=== PATIENT | female | born 1935 | race Caucasian/White ===

== ENCOUNTER 2017-07-29 08:25 | Inpatient (IN) ==
[2017-07-29] MEDS ORDERED: PROMETHAZINE 25 MG/1 ML VIAL IM PRN (08:39)
[2017-07-29] MEDS ORDERED: ASPIRIN 325 MG TABLET PO STA (08:39)
[2017-07-29] MEDS ORDERED: ONDANSETRON 4 MG/2 ML VIAL IV PRN (08:39)
[2017-07-29] MEDS ORDERED: ENOXAPARIN 100 MG/ML SYRINGE SUBCUT STA (08:39)
[2017-07-29] MEDS ORDERED: SODIUM CHLORIDE 0.9% 1,000 ML IV STA ×2 (08:40→10:44)
[2017-07-29 08:51] LABS: Basophils % 0.3 % (0.0-0.8); Eosinophils % 0.1 % (0.00-10.9); Hematocrit 37.5 VOL% (35.7-47.0); Hemoglobin 11.1 GM/DL (12.0-16.0); Immature Granulocytes % 1.1 %; Immature Granulocytes Absolute 0.13 #; Lymphocytes # 1.1 10*3/uL (1.4-4.0); Lymphocytes % 9.1 % (21.3-54.2); Mean Corpuscular HGB Conc 29.6 GM/DL (32-36); Mean Corpuscular Hemoglobin 31 PG (27-34); Mean Platelet Volume 11.1 FL (9.6-12.0); Monocytes # 0.7 10*3/uL (0.11-0.8); Monocytes % 5.6 % (1.7-12.7); Neutrophils # 10.2 10*3/uL (1.4-7.4); Neutrophils % 83.8 % (38.7-73.9); Platelet Count 226 T/CUMM (130-400); Red Blood Count 3.64 MC/CUMM (3.8-5.5); White Blood Count 12.2 T/CUMM (4-12)
[2017-07-29 08:59] LABS: PT Patient Result 10.8 SECS; Partial Thromboplastin Time 33.8 SECS (0-40)
[2017-07-29] MEDS ORDERED: ENOXAPARIN 80 MG/0.8 ML SYRINGE SUBCUT ONE (09:04)
[2017-07-29 09:21] LABS: Bilirubin,Total 0.5 MG/DL (0.2-1.0); Calcium 7.7 MG/DL (8.5-10.1); Osmolality,Calculated 294.2 MOS/KG (273-304)
[2017-07-29] MEDS ORDERED: MORPHINE 2 MG/1 ML SYRINGE IV STA (09:34)
[2017-07-29] MEDS ORDERED: MORPHINE 2 MG/1 ML SYRINGE ONE ×2 (09:38)
[2017-07-29] MEDS ORDERED: ONDANSETRON 4 MG/2 ML VIAL ONE (09:38)
[2017-07-29 09:44] LABS: Apearance,Urine Slightly Hazy (Clear); Bilirubin,Urine Negative (Negative); Blood, Urine Moderate mg/dL (Negative); Glucose,Urine (UA) >=500 mg/dL (Negative); Hyaline Casts,Urine 1 /LPF (0-3); Ketones,Urine 80 mg/dL (Negative); Mucus,Urine Occasional /LPF (Occasional); Nitrite,Urine Negative (Negative); Protein,Urine Negative; RBC,Urine 16 /HPF (0-4); Squamous Epithelial Cell,Urine Occasional /HPF (0-10); Urine Color Yellow (Yellow); Urine Specific Gravity 1.016 (1.001-1.035); Urine Urobilinogen < 2.0 EU/DL (0.2-1.0); WBC,Urine 2 /HPF (0-6)
[2017-07-29] MEDS ORDERED: NITROGLYCERIN 2% OINT 1 INCH/GM PACK TOP ONE (10:58)
[2017-07-29] MEDS: NITROGLYCERIN 2% OINT 1 INCH/GM PACK TOP SCH ×2 (12:00→17:17)
[2017-07-29] MEDS ORDERED: INSULIN LISPRO 100 UNIT/ML SUBCUT ONE (13:35)
[2017-07-29] MEDS ORDERED: INSULIN LISPRO 100 UNIT/ML SUBCUT STA (13:38)
[2017-07-29] MEDS ORDERED: GLUCAGON 1 MG VIAL IM PRN (14:08)
[2017-07-29] MEDS ORDERED: DOCUSATE SODIUM 100 MG CAPSULE PO PRN (14:08)
[2017-07-29] MEDS: INSULIN REGULAR 100 UNIT/ML SUBCUT SCH ×2 (15:50→17:06)
[2017-07-29] MEDS: SODIUM CHLORIDE 0.9% 1,000 ML IV SCH ×2 (17:05)
[2017-07-29] MEDS: AZTREONAM 500 MG in SYRINGE 1 EACH IV SCH (17:06)
[2017-07-29] MEDS: INSULIN NPH/REGULAR 70/30 100 UNIT/ML SUBCUT SCH (17:06)
[2017-07-29 17:31] LABS: CKMB % 8.7 %
[2017-07-29 17:32] LABS: Troponin I Only 0.734 NG/ML (0.00-0.045)
[2017-07-29 17:53] LABS: CKMB % 10.9 %
[2017-07-29 17:57] LABS: Troponin I Only 0.843 NG/ML (0.00-0.045)
[2017-07-29] MEDS ORDERED: VANCOMYCIN INJ 1,000 MG in SODIUM CHLORIDE 0.9% 250 ML IV SCH (18:00)
[2017-07-29] MEDS ORDERED: INSULIN REGULAR 100 UNIT/ML SUBCUT ONE (18:58)
[2017-07-29] MEDS: metroNIDAZOLE INJ 500 MG in PREMIX 1 EACH IV SCH (20:00)
[2017-07-29] MEDS ORDERED: METOPROLOL TARTRATE 50 MG TABLET PO SCH (21:00)
[2017-07-29] MEDS: ONDANSETRON 4 MG/2 ML VIAL IV PRN (21:50)
[2017-07-29] MEDS: INSULIN GLARGINE 100 UNIT/ML SUBCUT SCH (21:50)
[2017-07-29] MEDS: METOPROLOL TARTRATE 100 MG TABLET PO SCH (22:55)
[2017-07-30] MEDS: INSULIN REGULAR 100 UNIT/ML SUBCUT SCH ×5 (00:07→23:57)
[2017-07-30] MEDS: NITROGLYCERIN 2% OINT 1 INCH/GM PACK TOP SCH ×4 (03:30→18:14)
[2017-07-30] MEDS: metroNIDAZOLE INJ 500 MG in PREMIX 1 EACH IV SCH ×3 (03:56→21:01)
[2017-07-30] MEDS: METOPROLOL TARTRATE 100 MG TABLET PO SCH (03:56)
[2017-07-30 04:43] LABS: Basophils % 0.2 % (0.0-0.8); Hematocrit 31.8 VOL% (35.7-47.0); Hemoglobin 10.2 GM/DL (12.0-16.0); Immature Granulocytes % 0.6 %; Immature Granulocytes Absolute 0.07 #; Lymphocytes # 0.7 10*3/uL (1.4-4.0); Lymphocytes % 6.4 % (21.3-54.2); Mean Corpuscular HGB Conc 32.1 GM/DL (32-36); Mean Corpuscular Hemoglobin 31 PG (27-34); Mean Corpuscular Volume 97.8 FL (87-102); Mean Platelet Volume 11.7 FL (9.6-12.0); Monocytes # 0.7 10*3/uL (0.11-0.8); Monocytes % 6.7 % (1.7-12.7); Neutrophils # 9.4 10*3/uL (1.4-7.4); Neutrophils % 86.1 % (38.7-73.9); Platelet Count 201 T/CUMM (130-400); Red Blood Count 3.25 MC/CUMM (3.8-5.5); Red Cell Distribution Width 13.7 % (9.3-17.3); White Blood Count 10.9 T/CUMM (4-12)
[2017-07-30] MEDS ORDERED: AZTREONAM 500 MG in SYRINGE 1 EACH IV SCH (05:30)
[2017-07-30 05:43] LABS: Calcium 6.8 MG/DL (8.5-10.1); Osmolality,Calculated 285.7 MOS/KG (273-304); Potassium 4.9 MMOL/L (3.5-5.1)
[2017-07-30] MEDS: AZTREONAM 500 MG in SYRINGE 1 EACH IV SCH ×2 (05:53→17:20)
[2017-07-30] MEDS: MORPHINE 2 MG/1 ML SYRINGE IV PRN ×3 (06:38→21:10)
[2017-07-30] MEDS ORDERED: NITROGLYCERIN DRIP 50 MG/250 ML BOTTLE IV SCH (07:00)
[2017-07-30] MEDS ORDERED: PHENYLEPHRINE DRIP 40 MG/250 ML PREMIX IV ONE (07:01)
[2017-07-30] MEDS: PHENYLEPHRINE DRIP 40 MG/250 ML PREMIX IV SCH (07:39)
[2017-07-30] MEDS: SODIUM CHLORIDE 0.9% 1,000 ML IV SCH ×2 (07:44→16:14)
[2017-07-30] MEDS ORDERED: VANCOMYCIN INJ 1,000 MG in SODIUM CHLORIDE 0.9% 250 ML IV PRN (08:36)
[2017-07-30] MEDS ORDERED: ENOXAPARIN 80 MG/0.8 ML SYRINGE SUBCUT SCH (09:00)
[2017-07-30] MEDS: ONDANSETRON 4 MG/2 ML VIAL IV PRN (09:30)
[2017-07-30] MEDS ORDERED: LIDOCAINE 1% 20 ML VIAL ONE (09:37)
[2017-07-30] MEDS: INSULIN NPH/REGULAR 70/30 100 UNIT/ML SUBCUT SCH ×2 (09:50→17:06)
[2017-07-30] MEDS: ASPIRIN EC 325 MG TABLET PO SCH (09:51)
[2017-07-30] MEDS: PANTOPRAZOLE 40 MG TABLET PO SCH (09:52)
[2017-07-30] MEDS: FENOFIBRATE 145 MG TABLET PO SCH (09:52)
[2017-07-30] MEDS ORDERED: MEPERIDINE 25 MG/1 ML VIAL ONE (09:58)
[2017-07-30] MEDS ORDERED: HEPARIN/NACL 0.9% 2 UNITS/ML 0 ML IV ONE (09:58)
[2017-07-30] MEDS ORDERED: MIDAZOLAM 2 MG/2 ML VIAL ONE (09:59)
[2017-07-30] MEDS ORDERED: PHENYLEPHRINE 50 MG/5 ML VIAL ONE (09:59)
[2017-07-30] MEDS ORDERED: ENOXAPARIN 60 MG/0.6 ML SYRINGE ONE (10:42)
[2017-07-30] MEDS ORDERED: ENOXAPARIN 30 MG/0.3 ML SYRINGE ONE (10:48)
[2017-07-30 11:51] LABS: Amorphous Crystals,Urine Occasional /HPF (Few); Apearance,Urine CLOUDY (Clear); Bacteria,Urine Occasional /HPF (Few); Bilirubin,Urine Negative (Negative); Blood, Urine Moderate mg/dL (Negative); Glucose,Urine (UA) >=500 mg/dL (Negative); Hyaline Casts,Urine 3 /LPF (0-3); Ketones,Urine 20 mg/dL (Negative); Mucus,Urine Occasional /LPF (Occasional); Nitrite,Urine Negative (Negative); Protein,Urine 30 MG/DL; RBC,Urine 9 /HPF (0-4); Squamous Epithelial Cell,Urine Occasional /HPF (0-10); Urine Color Yellow (Yellow); Urine Specific Gravity 1.014 (1.001-1.035); WBC,Urine 3 /HPF (0-6)
[2017-07-30 17:30] LABS: Calcium 6.7 MG/DL (8.5-10.1); Osmolality,Calculated 283.4 MOS/KG (273-304); Potassium 5.3 MMOL/L (3.5-5.1)
[2017-07-30] MEDS ORDERED: FUROSEMIDE 40 MG/4 ML VIAL ONE (20:48)
[2017-07-30] MEDS: FUROSEMIDE 40 MG/4 ML VIAL IV SCH (21:00)
[2017-07-30] MEDS: ENOXAPARIN 40 MG/0.4 ML SYRINGE SUBCUT SCH (21:11)
[2017-07-30] MEDS: INSULIN GLARGINE 100 UNIT/ML SUBCUT SCH (21:11)
[2017-07-30 22:11] LABS: Allen Test Positive; Pt O2 Delivery Device BIPAP
[2017-07-30 22:12] LABS: ABG Base Excess -9.4 MMOL/L (-2.5-2.5); ABG HCO3 15.9 MMOL/L (20-26); ABG Oxygen Saturation 93.2 % (95-100); ABG PCO2 32.6 MM HG (35-48); ABG PH 7.306 (7.35-7.45); ABG PO2 68.8 MM HG (80-95); ABG TCO2 16.9 MMOL/L (23-27)
[2017-07-30] MEDS: MIDAZOLAM 2 MG/2 ML VIAL IV PRN (23:05)
[2017-07-30] MEDS: DEXTROSE 50% 25 GM/50 ML VIAL IV PRN (23:54)
[2017-07-31] MEDS: NITROGLYCERIN 2% OINT 1 INCH/GM PACK TOP SCH ×4 (01:32→18:18)
[2017-07-31] MEDS: MORPHINE 2 MG/1 ML SYRINGE IV PRN ×3 (02:19→20:08)
[2017-07-31] MEDS: MIDAZOLAM 2 MG/2 ML VIAL IV PRN (04:20)
[2017-07-31] MEDS: metroNIDAZOLE INJ 500 MG in PREMIX 1 EACH IV SCH ×3 (04:23→20:12)
[2017-07-31 04:36] LABS: Basophils % 0.1 % (0.0-0.8); Hematocrit 29.6 VOL% (35.7-47.0); Hemoglobin 9.6 GM/DL (12.0-16.0); Immature Granulocytes % 0.6 %; Immature Granulocytes Absolute 0.05 #; Lymphocytes # 0.9 10*3/uL (1.4-4.0); Lymphocytes % 10.4 % (21.3-54.2); Mean Corpuscular HGB Conc 32.4 GM/DL (32-36); Mean Corpuscular Hemoglobin 30 PG (27-34); Mean Corpuscular Volume 92.5 FL (87-102); Mean Platelet Volume 11.1 FL (9.6-12.0); Monocytes # 0.7 10*3/uL (0.11-0.8); Monocytes % 7.8 % (1.7-12.7); Neutrophils # 7.3 10*3/uL (1.4-7.4); Neutrophils % 81.1 % (38.7-73.9); Platelet Count 103 T/CUMM (130-400); Red Cell Distribution Width 14.4 % (9.3-17.3)
[2017-07-31 05:17] LABS: Calcium 6.6 MG/DL (8.5-10.1); Osmolality,Calculated 285.8 MOS/KG (273-304); Potassium 4.4 MMOL/L (3.5-5.1)
[2017-07-31] MEDS: DEXTROSE 50% 25 GM/50 ML VIAL IV PRN (05:32)
[2017-07-31] MEDS: AZTREONAM 500 MG in SYRINGE 1 EACH IV SCH ×2 (05:35→18:18)
[2017-07-31] MEDS: INSULIN REGULAR 100 UNIT/ML SUBCUT SCH ×3 (05:53→18:17)
[2017-07-31] MEDS: PHENYLEPHRINE DRIP 40 MG/250 ML PREMIX IV SCH (07:54)
[2017-07-31] MEDS ORDERED: VANCOMYCIN INJ 1,250 MG in SODIUM CHLORIDE 0.45% 250 ML IV PRN (08:00)
[2017-07-31] MEDS: INSULIN NPH/REGULAR 70/30 100 UNIT/ML SUBCUT SCH ×2 (08:05→16:47)
[2017-07-31] MEDS: FUROSEMIDE 40 MG/4 ML VIAL IV SCH ×2 (08:13→16:47)
[2017-07-31] MEDS ORDERED: VANCOMYCIN INJ 1,250 MG in SODIUM CHLORIDE 0.45% 250 ML IV ONE (09:00)
[2017-07-31] MEDS: ENOXAPARIN 40 MG/0.4 ML SYRINGE SUBCUT SCH ×2 (09:47→20:01)
[2017-07-31] MEDS: ASPIRIN EC 325 MG TABLET PO SCH (09:47)
[2017-07-31] MEDS: PANTOPRAZOLE 40 MG TABLET PO SCH (09:47)
[2017-07-31] MEDS: FENOFIBRATE 145 MG TABLET PO SCH (09:47)
[2017-07-31] MEDS: METOPROLOL TARTRATE 25 MG TABLET PO SCH ×2 (12:00→20:00)
[2017-07-31] MEDS: INSULIN GLARGINE 100 UNIT/ML SUBCUT SCH (20:01)
[2017-08-01] MEDS: INSULIN REGULAR 100 UNIT/ML SUBCUT SCH ×5 (00:37→23:49)
[2017-08-01] MEDS: NITROGLYCERIN 2% OINT 1 INCH/GM PACK TOP SCH ×4 (00:51→18:07)
[2017-08-01] MEDS: MORPHINE 2 MG/1 ML SYRINGE IV PRN ×4 (01:01→17:15)
[2017-08-01] MEDS: ONDANSETRON 4 MG/2 ML VIAL IV PRN ×3 (04:13→11:05)
[2017-08-01] MEDS: MIDAZOLAM 2 MG/2 ML VIAL IV PRN (05:03)
[2017-08-01] MEDS: AZTREONAM 500 MG in SYRINGE 1 EACH IV SCH ×2 (05:10→06:49)
[2017-08-01] MEDS: metroNIDAZOLE INJ 500 MG in PREMIX 1 EACH IV SCH (05:10)
[2017-08-01 06:43] LABS: Basophils % 0.1 % (0.0-0.8); Eosinophils % 0.1 % (0.00-10.9); Hematocrit 30.5 VOL% (35.7-47.0); Immature Granulocytes % 0.9 %; Immature Granulocytes Absolute 0.09 #; Lymphocytes # 0.7 10*3/uL (1.4-4.0); Lymphocytes % 7.5 % (21.3-54.2); Mean Corpuscular HGB Conc 32.8 GM/DL (32-36); Mean Corpuscular Hemoglobin 30 PG (27-34); Mean Corpuscular Volume 91.9 FL (87-102); Mean Platelet Volume 11.7 FL (9.6-12.0); Monocytes # 0.5 10*3/uL (0.11-0.8); Monocytes % 5.1 % (1.7-12.7); Neutrophils # 8.2 10*3/uL (1.4-7.4); Neutrophils % 86.3 % (38.7-73.9); Red Blood Count 3.32 MC/CUMM (3.8-5.5); Red Cell Distribution Width 14.6 % (9.3-17.3); White Blood Count 9.5 T/CUMM (4-12)
[2017-08-01 06:46] LABS: Platelet Count 69 T/CUMM (130-400)
[2017-08-01] MEDS: INSULIN NPH/REGULAR 70/30 100 UNIT/ML SUBCUT SCH (06:53)
[2017-08-01 07:07] LABS: Osmolality,Calculated 285.5 MOS/KG (273-304); Potassium 3.5 MMOL/L (3.5-5.1)
[2017-08-01 07:12] LABS: Microcytosis 1+; Platelet Estimate Decreased
[2017-08-01] MEDS: ACETAMINOPHEN 325 MG TABLET PO PRN (08:30)
[2017-08-01] MEDS: ASPIRIN EC 325 MG TABLET PO SCH (09:09)
[2017-08-01] MEDS: ENOXAPARIN 40 MG/0.4 ML SYRINGE SUBCUT SCH (09:09)
[2017-08-01] MEDS: FUROSEMIDE 40 MG/4 ML VIAL IV SCH ×2 (09:09→18:07)
[2017-08-01] MEDS: PANTOPRAZOLE 40 MG TABLET PO SCH ×2 (09:09→18:07)
[2017-08-01] MEDS: FENOFIBRATE 145 MG TABLET PO SCH (09:09)
[2017-08-01] MEDS: METOPROLOL TARTRATE 25 MG TABLET PO SCH ×2 (09:09→21:30)
[2017-08-01] MEDS: PROMETHAZINE 25 MG/1 ML VIAL IM PRN ×2 (11:30→17:15)
[2017-08-01 11:45] LABS: ABG Base Excess -0.6 MMOL/L (-2.5-2.5); ABG HCO3 23.9 MMOL/L (20-26); ABG PCO2 44.1 MM HG (35-48); ABG PH 7.361 (7.35-7.45); ABG PO2 85.2 MM HG (80-95); ABG TCO2 22.7 MMOL/L (23-27); Allen Test Positive
[2017-08-01] MEDS ORDERED: LIDOCAINE 1% 20 ML VIAL MISC INJ ONE (11:45)
[2017-08-01] MEDS: FAMOTIDINE 20 MG TABLET PO SCH ×2 (12:37→21:30)
[2017-08-01] MEDS: LEVOTHYROXINE 100 MCG TABLET PO SCH (12:37)
[2017-08-01 13:07] LABS: Lactic Acid 0.9 MMOL/L (0.4-2.0)
[2017-08-01 13:32] LABS: Albumin 2.3 G/DL (3.4-5.0); Bilirubin,Direct 0.35 MG/DL (0.0-0.20); Bilirubin,Indirect 0.4 MG/DL (0.0-1.0); Bilirubin,Total 0.7 MG/DL (0.2-1.0); Total Protein 5.5 G/DL (6.4-8.3)
[2017-08-02] MEDS: NITROGLYCERIN 2% OINT 1 INCH/GM PACK TOP SCH ×4 (00:01→18:40)
[2017-08-02] MEDS: MORPHINE 2 MG/1 ML SYRINGE IV PRN ×4 (00:38→22:50)
[2017-08-02 04:54] LABS: Basophils % 0.2 % (0.0-0.8); Eosinophils # 0.1 10*3/uL (0.0-0.87); Eosinophils % 0.6 % (0.00-10.9); Hematocrit 29.2 VOL% (35.7-47.0); Hemoglobin 9.7 GM/DL (12.0-16.0); Immature Granulocytes % 1.1 %; Lymphocytes # 0.9 10*3/uL (1.4-4.0); Mean Corpuscular HGB Conc 33.2 GM/DL (32-36); Mean Corpuscular Hemoglobin 30 PG (27-34); Mean Corpuscular Volume 91.3 FL (87-102); Mean Platelet Volume 11.9 FL (9.6-12.0); Monocytes # 0.7 10*3/uL (0.11-0.8); Monocytes % 7.1 % (1.7-12.7); Neutrophils # 7.7 10*3/uL (1.4-7.4); Platelet Count 107 T/CUMM (130-400); Red Cell Distribution Width 14.6 % (9.3-17.3); White Blood Count 9.4 T/CUMM (4-12)
[2017-08-02 05:28] LABS: Calcium 7.6 MG/DL (8.5-10.1); Osmolality,Calculated 294.4 MOS/KG (273-304); Potassium 3.4 MMOL/L (3.5-5.1)
[2017-08-02] MEDS: INSULIN REGULAR 100 UNIT/ML SUBCUT SCH ×3 (05:31→18:39)
[2017-08-02] MEDS ORDERED: HEPARIN/NACL 0.9% 2 UNITS/ML 1,000 ML IV ONE (08:16)
[2017-08-02 09:53] LABS: CKMB % 1.2 %
[2017-08-02 09:54] LABS: Troponin I Only 5.1 NG/ML (0.00-0.045)
[2017-08-02] MEDS: METOPROLOL TARTRATE 25 MG TABLET PO SCH ×2 (10:27→20:26)
[2017-08-02] MEDS ORDERED: SODIUM PHOSPHATE ENEMA 133 ML BOTTLE RECTAL ONE (10:29)
[2017-08-02] MEDS: PROMETHAZINE 25 MG/1 ML VIAL IM PRN (10:45)
[2017-08-02] MEDS ORDERED: FUROSEMIDE 20 MG/2 ML VIAL ONE (11:05)
[2017-08-02] MEDS: ASPIRIN EC 325 MG TABLET PO SCH (13:39)
[2017-08-02] MEDS: LEVOTHYROXINE 100 MCG TABLET PO SCH (13:39)
[2017-08-02] MEDS: LACTOBACILLUS ACIDOPHILUS/BULGARICUS CAPLET PO SCH (13:39)
[2017-08-02] MEDS: FUROSEMIDE 40 MG/4 ML VIAL IV SCH ×2 (13:39→18:39)
[2017-08-02] MEDS: FAMOTIDINE 20 MG TABLET PO SCH ×2 (13:39→20:26)
[2017-08-02] MEDS: FENOFIBRATE 145 MG TABLET PO SCH (13:41)
[2017-08-02] MEDS: PANTOPRAZOLE 40 MG TABLET PO SCH (13:41)
[2017-08-02] MEDS: valACYclovir 500 MG TABLET PO SCH (13:42)
[2017-08-02] MEDS ORDERED: DILTIAZEM 100 MG VIAL.ADD IV ONE (13:49)
[2017-08-02] MEDS ORDERED: DILTIAZEM 50 MG/10 ML VIAL IV ONE (13:49)
[2017-08-02] MEDS: INSULIN GLARGINE 100 UNIT/ML SUBCUT SCH (18:39)
[2017-08-02] MEDS: POTASSIUM CHLORIDE 20 MEQ TABLET PO SCH (18:39)
[2017-08-02] MEDS: ACETAMINOPHEN 325 MG TABLET PO PRN (23:44)
[2017-08-03] MEDS: NITROGLYCERIN 2% OINT 1 INCH/GM PACK TOP SCH ×4 (00:05→19:19)
[2017-08-03] MEDS: INSULIN REGULAR 100 UNIT/ML SUBCUT SCH ×4 (00:05→18:30)
[2017-08-03 06:22] LABS: Basophils % 0.3 % (0.0-0.8); Eosinophils # 0.3 10*3/uL (0.0-0.87); Eosinophils % 2.9 % (0.00-10.9); Hematocrit 30.6 VOL% (35.7-47.0); Hemoglobin 10.2 GM/DL (12.0-16.0); Immature Granulocytes % 1.4 %; Immature Granulocytes Absolute 0.12 #; Lymphocytes # 1.1 10*3/uL (1.4-4.0); Lymphocytes % 12.6 % (21.3-54.2); Mean Corpuscular HGB Conc 33.3 GM/DL (32-36); Mean Corpuscular Hemoglobin 30 PG (27-34); Mean Corpuscular Volume 90.3 FL (87-102); Mean Platelet Volume 11.3 FL (9.6-12.0); Monocytes # 0.8 10*3/uL (0.11-0.8); Monocytes % 9.5 % (1.7-12.7); Neutrophils # 6.5 10*3/uL (1.4-7.4); Neutrophils % 73.3 % (38.7-73.9); Platelet Count 145 T/CUMM (130-400); Red Blood Count 3.39 MC/CUMM (3.8-5.5); Red Cell Distribution Width 14.2 % (9.3-17.3); White Blood Count 8.9 T/CUMM (4-12)
[2017-08-03] MEDS: LEVOTHYROXINE 100 MCG TABLET PO SCH (06:22)
[2017-08-03 06:51] LABS: Calcium 7.8 MG/DL (8.5-10.1); Osmolality,Calculated 284.5 MOS/KG (273-304)
[2017-08-03 06:58] LABS: Risk Ratio 4.64; VLDL CHOLESTEROL 40.8 MG/DL
[2017-08-03] MEDS: FUROSEMIDE 40 MG/4 ML VIAL IV SCH (08:30)
[2017-08-03] MEDS ORDERED: FUROSEMIDE 40 MG TABLET PO SCH (09:00)
[2017-08-03] MEDS: ASPIRIN EC 325 MG TABLET PO SCH (09:05)
[2017-08-03] MEDS: FENOFIBRATE 145 MG TABLET PO SCH (09:05)
[2017-08-03] MEDS: POTASSIUM CHLORIDE 20 MEQ TABLET PO SCH (09:05)
[2017-08-03] MEDS: FAMOTIDINE 20 MG TABLET PO SCH ×2 (09:05→20:16)
[2017-08-03] MEDS: PANTOPRAZOLE 40 MG TABLET PO SCH (09:05)
[2017-08-03] MEDS: METOPROLOL TARTRATE 25 MG TABLET PO SCH ×2 (09:06→20:17)
[2017-08-03] MEDS ORDERED: ASPIRIN CHEW 81 MG TABLET PO ONE (09:11)
[2017-08-03] MEDS: LACTOBACILLUS ACIDOPHILUS/BULGARICUS CAPLET PO SCH (09:15)
[2017-08-03] MEDS: valACYclovir 500 MG TABLET PO SCH (09:16)
[2017-08-03] MEDS: PROMETHAZINE 25 MG/1 ML VIAL IM PRN (09:36)
[2017-08-03] MEDS ORDERED: POTASSIUM CHLORIDE INJ 40 MEQ in SODIUM CHLORIDE 0.45% 250 ML IV ONE (12:30)
[2017-08-03] MEDS: INSULIN GLARGINE 100 UNIT/ML SUBCUT SCH (12:42)
[2017-08-03] MEDS ORDERED: BISACODYL 10 MG SUPP RECTAL ONE (16:44)
[2017-08-03] MEDS ORDERED: INSULIN GLARGINE 100 UNIT/ML SUBCUT SCH (16:52)
[2017-08-03] MEDS: CEFEPIME 1,000 MG in SYRINGE 1 EACH IV SCH (19:10)
[2017-08-03] MEDS: methylPREDNISolone SOD SUC 40 MG/1 ML VIAL IV SCH (19:20)
[2017-08-03] MEDS: INSULIN LISPRO 100 UNIT/ML SUBCUT SCH ×2 (20:16)
[2017-08-03] MEDS: ALBUTEROL/IPRATROPIUM 3 ML NEB RESP TX SCH (21:11)
[2017-08-04] MEDS: methylPREDNISolone SOD SUC 40 MG/1 ML VIAL IV SCH ×4 (01:07→18:19)
[2017-08-04] MEDS: INSULIN REGULAR 100 UNIT/ML SUBCUT SCH ×2 (01:09→06:08)
[2017-08-04] MEDS: NITROGLYCERIN 2% OINT 1 INCH/GM PACK TOP SCH ×4 (01:09→18:19)
[2017-08-04 05:33] LABS: Basophils % 0.1 % (0.0-0.8); Hematocrit 33.2 VOL% (35.7-47.0); Immature Granulocytes % 2.2 %; Immature Granulocytes Absolute 0.18 #; Lymphocytes # 0.6 10*3/uL (1.4-4.0); Lymphocytes % 6.9 % (21.3-54.2); Mean Corpuscular HGB Conc 33.1 GM/DL (32-36); Mean Corpuscular Hemoglobin 30 PG (27-34); Mean Corpuscular Volume 90.5 FL (87-102); Mean Platelet Volume 11.6 FL (9.6-12.0); Monocytes # 0.2 10*3/uL (0.11-0.8); Monocytes % 2.3 % (1.7-12.7); Neutrophils # 7.4 10*3/uL (1.4-7.4); Neutrophils % 88.5 % (38.7-73.9); Platelet Count 174 T/CUMM (130-400); Red Blood Count 3.67 MC/CUMM (3.8-5.5); Red Cell Distribution Width 14.5 % (9.3-17.3); White Blood Count 8.3 T/CUMM (4-12)
[2017-08-04] MEDS: CEFEPIME 1,000 MG in SYRINGE 1 EACH IV SCH ×3 (06:00→18:19)
[2017-08-04 06:05] LABS: Calcium 8.4 MG/DL (8.5-10.1); Osmolality,Calculated 289.7 MOS/KG (273-304); Potassium 4.5 MMOL/L (3.5-5.1)
[2017-08-04] MEDS: LEVOTHYROXINE 100 MCG TABLET PO SCH (07:05)
[2017-08-04] MEDS: ALBUTEROL/IPRATROPIUM 3 ML NEB RESP TX SCH ×3 (07:28→20:02)
[2017-08-04] MEDS ORDERED: FUROSEMIDE 40 MG/4 ML VIAL IV ONE (08:30)
[2017-08-04] MEDS ORDERED: SODIUM PHOSPHATE ENEMA 133 ML BOTTLE RECTAL PRN (09:11)
[2017-08-04] MEDS ORDERED: ASPIRIN CHEW 81 MG TABLET PO ONE (09:18)
[2017-08-04] MEDS: INSULIN LISPRO 100 UNIT/ML SUBCUT SCH ×8 (09:29→21:55)
[2017-08-04] MEDS: ASPIRIN EC 325 MG TABLET PO SCH (09:30)
[2017-08-04] MEDS: POTASSIUM CHLORIDE 20 MEQ TABLET PO SCH (09:30)
[2017-08-04] MEDS: FAMOTIDINE 20 MG TABLET PO SCH ×2 (09:31→21:59)
[2017-08-04] MEDS: METOPROLOL TARTRATE 25 MG TABLET PO SCH ×2 (09:31→21:58)
[2017-08-04] MEDS: FENOFIBRATE 145 MG TABLET PO SCH (09:31)
[2017-08-04] MEDS: PANTOPRAZOLE 40 MG TABLET PO SCH (09:31)
[2017-08-04] MEDS: valACYclovir 500 MG TABLET PO SCH (09:31)
[2017-08-04] MEDS: FUROSEMIDE 40 MG/4 ML VIAL IV SCH ×3 (09:31→21:55)
[2017-08-04] MEDS: LACTOBACILLUS ACIDOPHILUS/BULGARICUS CAPLET PO SCH (09:31)
[2017-08-04 10:52] LABS: Basophils % 0.2 % (0.0-0.8); Hematocrit 31.8 VOL% (35.7-47.0); Hemoglobin 10.5 GM/DL (12.0-16.0); Immature Granulocytes % 2.4 %; Immature Granulocytes Absolute 0.25 #; Lymphocytes # 0.3 10*3/uL (1.4-4.0); Lymphocytes % 2.9 % (21.3-54.2); Mean Corpuscular Hemoglobin 30 PG (27-34); Mean Corpuscular Volume 91.1 FL (87-102); Mean Platelet Volume 11.7 FL (9.6-12.0); Monocytes # 0.1 10*3/uL (0.11-0.8); Monocytes % 0.9 % (1.7-12.7); Neutrophils # 9.9 10*3/uL (1.4-7.4); Neutrophils % 93.6 % (38.7-73.9); Platelet Count 181 T/CUMM (130-400); Red Blood Count 3.49 MC/CUMM (3.8-5.5); Red Cell Distribution Width 14.6 % (9.3-17.3); White Blood Count 10.6 T/CUMM (4-12)
[2017-08-04] MEDS ORDERED: INSULIN GLARGINE 100 UNIT/ML SUBCUT SCH (17:20)
[2017-08-04] MEDS: MORPHINE 2 MG/1 ML SYRINGE IV PRN (21:53)
[2017-08-04] MEDS: ENOXAPARIN 40 MG/0.4 ML SYRINGE SUBCUT SCH (22:00)
[2017-08-05] MEDS ORDERED: INSULIN REGULAR 100 UNIT/ML SUBCUT ONE (01:00)
[2017-08-05] MEDS: NITROGLYCERIN 2% OINT 1 INCH/GM PACK TOP SCH ×5 (01:00→23:49)
[2017-08-05] MEDS: CEFEPIME 1,000 MG in SYRINGE 1 EACH IV SCH ×2 (04:00→13:06)
[2017-08-05 05:31] LABS: Basophils % 0.1 % (0.0-0.8); Hematocrit 28.3 VOL% (35.7-47.0); Hemoglobin 9.8 GM/DL (12.0-16.0); Immature Granulocytes % 1.7 %; Immature Granulocytes Absolute 0.24 #; Lymphocytes # 0.6 10*3/uL (1.4-4.0); Mean Corpuscular HGB Conc 34.6 GM/DL (32-36); Mean Corpuscular Hemoglobin 31 PG (27-34); Mean Corpuscular Volume 88.4 FL (87-102); Mean Platelet Volume 12.4 FL (9.6-12.0); Monocytes # 0.9 10*3/uL (0.11-0.8); Monocytes % 6.5 % (1.7-12.7); Neutrophils # 12.2 10*3/uL (1.4-7.4); Neutrophils % 87.7 % (38.7-73.9); Platelet Count 181 T/CUMM (130-400); Red Cell Distribution Width 14.8 % (9.3-17.3); White Blood Count 13.9 T/CUMM (4-12)
[2017-08-05 05:46] LABS: Calcium 8.4 MG/DL (8.5-10.1); Osmolality,Calculated 291.7 MOS/KG (273-304); Potassium 4.4 MMOL/L (3.5-5.1)
[2017-08-05 05:53] LABS: Band Neutrophils 2 % (0-10); Giant Platelets Few; Hypochromasia 1+; Lymphocytes 8 % (20-55); Ovalocytes Slight; Platelet Estimate Normal; Segmented Neutrophils 85 % (50-85); Total Cells Counted 100
[2017-08-05] MEDS: methylPREDNISolone SOD SUC 40 MG/1 ML VIAL IV SCH ×2 (06:40→18:32)
[2017-08-05] MEDS: LEVOTHYROXINE 100 MCG TABLET PO SCH (06:49)
[2017-08-05] MEDS ORDERED: MAGNESIUM SULF RIDER 4 GM in PREMIX 1 EACH IV PRN (07:45)
[2017-08-05] MEDS ORDERED: MAGNESIUM SULF RIDER 2 GM in PREMIX 1 EACH IV PRN ×2 (07:45→07:56)
[2017-08-05] MEDS ORDERED: POTASSIUM CHLORIDE RIDER 10 MEQ in PREMIX 1 EACH IV PRN (07:56)
[2017-08-05] MEDS: INSULIN LISPRO 100 UNIT/ML SUBCUT SCH ×8 (07:57→21:20)
[2017-08-05] MEDS: ALBUTEROL/IPRATROPIUM 3 ML NEB RESP TX SCH ×3 (07:58→23:34)
[2017-08-05] MEDS: FUROSEMIDE 40 MG/4 ML VIAL IV SCH ×2 (08:10→21:16)
[2017-08-05] MEDS: FAMOTIDINE 20 MG TABLET PO SCH (08:12)
[2017-08-05] MEDS: PANTOPRAZOLE 40 MG TABLET PO SCH (08:12)
[2017-08-05] MEDS: ASPIRIN EC 81 MG TABLET PO SCH (08:12)
[2017-08-05] MEDS: METOPROLOL TARTRATE 25 MG TABLET PO SCH ×2 (08:12→21:19)
[2017-08-05] MEDS: SODIUM CHLORIDE 0.45% 1,000 ML IV SCH ×2 (08:13→17:49)
[2017-08-05 08:31] LABS: PT Patient Result 10.8 SECS
[2017-08-05] MEDS ORDERED: DIAZEPAM 5 MG TABLET PO ONE (09:00)
[2017-08-05] MEDS ORDERED: diphenhydrAMINE CAP 25 MG CAPSULE PO ONE (09:00)
[2017-08-05] MEDS ORDERED: HEPARIN/NACL 0.9% 2 UNITS/ML 2,000 ML IV ONE (11:05)
[2017-08-05] MEDS ORDERED: LIDOCAINE 1% 20 ML VIAL ONE (11:15)
[2017-08-05] MEDS ORDERED: fentaNYL 100 MCG/2 ML VIAL ONE (11:34)
[2017-08-05] MEDS ORDERED: MIDAZOLAM 2 MG/2 ML VIAL ONE (11:34)
[2017-08-05] MEDS: valACYclovir 500 MG TABLET PO SCH (13:07)
[2017-08-05] MEDS: FENOFIBRATE 145 MG TABLET PO SCH (13:07)
[2017-08-05] MEDS: POTASSIUM CHLORIDE 20 MEQ TABLET PO SCH (13:07)
[2017-08-05] MEDS: LACTOBACILLUS ACIDOPHILUS/BULGARICUS CAPLET PO SCH (13:08)
[2017-08-05] MEDS: ENOXAPARIN 40 MG/0.4 ML SYRINGE SUBCUT SCH (21:27)
[2017-08-06] MEDS: SODIUM CHLORIDE 0.45% 1,000 ML IV SCH ×2 (03:44→13:31)
[2017-08-06 05:07] LABS: Basophils % 0.1 % (0.0-0.8); Hematocrit 29.9 VOL% (35.7-47.0); Immature Granulocytes % 1.8 %; Immature Granulocytes Absolute 0.27 #; Lymphocytes # 0.5 10*3/uL (1.4-4.0); Lymphocytes % 3.3 % (21.3-54.2); Mean Corpuscular HGB Conc 33.4 GM/DL (32-36); Mean Corpuscular Hemoglobin 30 PG (27-34); Mean Platelet Volume 12.6 FL (9.6-12.0); Monocytes % 6.9 % (1.7-12.7); Neutrophils # 12.9 10*3/uL (1.4-7.4); Neutrophils % 87.9 % (38.7-73.9); Platelet Count 208 T/CUMM (130-400); Red Blood Count 3.36 MC/CUMM (3.8-5.5); Red Cell Distribution Width 14.8 % (9.3-17.3); White Blood Count 14.7 T/CUMM (4-12)
[2017-08-06 05:38] LABS: Band Neutrophils 4 % (0-10); Lymphocytes 2 % (20-55); Myelocytes 1 %; Segmented Neutrophils 92 % (50-85)
[2017-08-06 05:39] LABS: Platelet Estimate Normal; Total Cells Counted 100
[2017-08-06 05:46] LABS: Calcium 8.1 MG/DL (8.5-10.1); Osmolality,Calculated 290.8 MOS/KG (273-304); Potassium 4.7 MMOL/L (3.5-5.1)
[2017-08-06 05:47] LABS: Calcium 8.1 MG/DL (8.5-10.1); Osmolality,Calculated 294.7 MOS/KG (273-304); Potassium 4.8 MMOL/L (3.5-5.1)
[2017-08-06] MEDS: NITROGLYCERIN 2% OINT 1 INCH/GM PACK TOP SCH ×4 (06:18→23:00)
[2017-08-06] MEDS: LEVOTHYROXINE 100 MCG TABLET PO SCH (06:18)
[2017-08-06] MEDS: methylPREDNISolone SOD SUC 40 MG/1 ML VIAL IV SCH ×2 (06:18→18:03)
[2017-08-06] MEDS: ALBUTEROL/IPRATROPIUM 3 ML NEB RESP TX SCH ×4 (07:31→20:05)
[2017-08-06] MEDS ORDERED: REGADENOSON 0.4 MG/5 ML SYRINGE IV ONE (08:08)
[2017-08-06] MEDS ORDERED: INSULIN GLARGINE 100 UNIT/ML SUBCUT SCH (09:00)
[2017-08-06] MEDS: ONDANSETRON 4 MG/2 ML VIAL IV PRN ×2 (09:15→22:56)
[2017-08-06] MEDS: INSULIN LISPRO 100 UNIT/ML SUBCUT SCH ×8 (09:17→21:20)
[2017-08-06] MEDS: FUROSEMIDE 40 MG/4 ML VIAL IV SCH ×2 (09:19→21:21)
[2017-08-06] MEDS: FENOFIBRATE 145 MG TABLET PO SCH (09:20)
[2017-08-06] MEDS: FAMOTIDINE 20 MG TABLET PO SCH (09:20)
[2017-08-06] MEDS: LACTOBACILLUS ACIDOPHILUS/BULGARICUS CAPLET PO SCH (09:21)
[2017-08-06] MEDS: ASPIRIN EC 81 MG TABLET PO SCH (09:21)
[2017-08-06] MEDS: PANTOPRAZOLE 40 MG TABLET PO SCH (09:21)
[2017-08-06] MEDS: METOPROLOL TARTRATE 25 MG TABLET PO SCH ×2 (09:21→21:21)
[2017-08-06] MEDS: POTASSIUM CHLORIDE 20 MEQ TABLET PO SCH (09:21)
[2017-08-06] MEDS: valACYclovir 500 MG TABLET PO SCH (09:28)
[2017-08-06] MEDS ORDERED: DEXTROSE 50% 25 GM/50 ML VIAL IV PRN (12:36)
[2017-08-06] MEDS ORDERED: GLUCAGON 1 MG VIAL IM PRN (12:36)
[2017-08-06] MEDS: CEFEPIME 1,000 MG in SYRINGE 1 EACH IV SCH (13:42)
[2017-08-06] MEDS: ENOXAPARIN 40 MG/0.4 ML SYRINGE SUBCUT SCH (21:20)
[2017-08-07 05:53] LABS: Basophils % 0.1 % (0.0-0.8); Hematocrit 29.4 VOL% (35.7-47.0); Immature Granulocytes % 1.5 %; Lymphocytes # 0.8 10*3/uL (1.4-4.0); Lymphocytes % 5.4 % (21.3-54.2); Mean Corpuscular Hemoglobin 30 PG (27-34); Mean Corpuscular Volume 88.3 FL (87-102); Mean Platelet Volume 12.8 FL (9.6-12.0); Monocytes # 1.3 10*3/uL (0.11-0.8); Monocytes % 9.2 % (1.7-12.7); Neutrophils # 11.6 10*3/uL (1.4-7.4); Neutrophils % 83.8 % (38.7-73.9); Platelet Count 246 T/CUMM (130-400); Red Blood Count 3.33 MC/CUMM (3.8-5.5); Red Cell Distribution Width 15.3 % (9.3-17.3); White Blood Count 13.8 T/CUMM (4-12)
[2017-08-07] MEDS: methylPREDNISolone SOD SUC 40 MG/1 ML VIAL IV SCH ×3 (06:00→18:10)
[2017-08-07] MEDS: NITROGLYCERIN 2% OINT 1 INCH/GM PACK TOP SCH ×3 (06:00→17:56)
[2017-08-07] MEDS: LEVOTHYROXINE 100 MCG TABLET PO SCH (06:05)
[2017-08-07] MEDS: INSULIN LISPRO 100 UNIT/ML SUBCUT SCH ×8 (08:45→21:29)
[2017-08-07] MEDS: LACTOBACILLUS ACIDOPHILUS/BULGARICUS CAPLET PO SCH (08:46)
[2017-08-07] MEDS: ASPIRIN EC 81 MG TABLET PO SCH (08:46)
[2017-08-07] MEDS: FAMOTIDINE 20 MG TABLET PO SCH (08:46)
[2017-08-07] MEDS: PANTOPRAZOLE 40 MG TABLET PO SCH (08:47)
[2017-08-07] MEDS: FENOFIBRATE 145 MG TABLET PO SCH (08:47)
[2017-08-07] MEDS: POTASSIUM CHLORIDE 20 MEQ TABLET PO SCH (08:47)
[2017-08-07] MEDS: METOPROLOL TARTRATE 25 MG TABLET PO SCH ×2 (08:48→21:29)
[2017-08-07] MEDS: FUROSEMIDE 40 MG/4 ML VIAL IV SCH (08:48)
[2017-08-07] MEDS: INSULIN GLARGINE 100 UNIT/ML SUBCUT SCH (08:48)
[2017-08-07] MEDS: valACYclovir 500 MG TABLET PO SCH (08:51)
[2017-08-07] MEDS: SODIUM CHLORIDE 0.9% 1,000 ML IV SCH (10:05)
[2017-08-07] MEDS: ALBUTEROL/IPRATROPIUM 3 ML NEB RESP TX SCH ×2 (10:26→19:15)
[2017-08-07] MEDS: CEFEPIME 1,000 MG in SYRINGE 1 EACH IV SCH (15:05)
[2017-08-07] MEDS ORDERED: NYSTATIN 500,000 UNIT/5 ML UDCUP SWISH/SWAL PRN (19:54)
[2017-08-07] MEDS: ENOXAPARIN 40 MG/0.4 ML SYRINGE SUBCUT SCH (21:29)
[2017-08-08] MEDS: NITROGLYCERIN 2% OINT 1 INCH/GM PACK TOP SCH ×4 (00:06→17:09)
[2017-08-08] MEDS: CHLORHEXIDINE 4% SOLN 118 ML BOTTLE TOP SCH ×4 (01:07→21:50)
[2017-08-08] MEDS: CHLORHEXIDINE 0.12% ORAL RINSE 60 ML BOTTLE SWISH/SPIT SCH ×3 (01:07→21:07)
[2017-08-08] MEDS: ONDANSETRON 4 MG/2 ML VIAL IV PRN (04:48)
[2017-08-08 05:17] LABS: Basophils % 0.2 % (0.0-0.8); Eosinophils % 0.1 % (0.00-10.9); Hematocrit 31.5 VOL% (35.7-47.0); Hemoglobin 10.4 GM/DL (12.0-16.0); Immature Granulocytes Absolute 0.27 #; Lymphocytes # 1.2 10*3/uL (1.4-4.0); Lymphocytes % 9.1 % (21.3-54.2); Mean Corpuscular Hemoglobin 30 PG (27-34); Mean Platelet Volume 12.4 FL (9.6-12.0); Monocytes # 1.2 10*3/uL (0.11-0.8); Monocytes % 9.1 % (1.7-12.7); Neutrophils # 10.9 10*3/uL (1.4-7.4); Neutrophils % 79.5 % (38.7-73.9); Platelet Count 265 T/CUMM (130-400); Red Cell Distribution Width 15.6 % (9.3-17.3); White Blood Count 13.7 T/CUMM (4-12)
[2017-08-08] MEDS: methylPREDNISolone SOD SUC 40 MG/1 ML VIAL IV SCH ×2 (06:10→18:18)
[2017-08-08] MEDS: LEVOTHYROXINE 100 MCG TABLET PO SCH (06:15)
[2017-08-08] MEDS: INSULIN LISPRO 100 UNIT/ML SUBCUT SCH ×8 (07:55→21:50)
[2017-08-08] MEDS: ALBUTEROL/IPRATROPIUM 3 ML NEB RESP TX SCH ×3 (08:00→19:40)
[2017-08-08] MEDS: LACTOBACILLUS ACIDOPHILUS/BULGARICUS CAPLET PO SCH (09:35)
[2017-08-08] MEDS: FAMOTIDINE 20 MG TABLET PO SCH (09:35)
[2017-08-08] MEDS: FENOFIBRATE 145 MG TABLET PO SCH (09:35)
[2017-08-08] MEDS: POTASSIUM CHLORIDE 20 MEQ TABLET PO SCH (09:36)
[2017-08-08] MEDS: METOPROLOL TARTRATE 25 MG TABLET PO SCH ×2 (09:36→21:02)
[2017-08-08] MEDS: ASPIRIN EC 81 MG TABLET PO SCH (09:36)
[2017-08-08] MEDS: PANTOPRAZOLE 40 MG TABLET PO SCH (09:36)
[2017-08-08] MEDS: valACYclovir 500 MG TABLET PO SCH (09:38)
[2017-08-08] MEDS: INSULIN GLARGINE 100 UNIT/ML SUBCUT SCH (09:40)
[2017-08-08] MEDS: FUROSEMIDE 40 MG TABLET PO SCH (09:44)
[2017-08-08 11:36] LABS: Alanine Aminotransferase 139 U/L (13-56); Albumin 2.3 G/DL (3.4-5.0); Alkaline Phosphatase 93 U/L (45-117); Aspartate Amino Transferase 23 U/L (0-37); Bilirubin,Indirect 0.2 MG/DL (0.0-1.0); Bilirubin,Total < 0.39 MG/DL (0.2-1.0); Total Protein 5.7 G/DL (6.4-8.3)
[2017-08-08] MEDS: SODIUM CHLORIDE 0.9% 1,000 ML IV SCH (13:08)
[2017-08-08] MEDS: CEFEPIME 1,000 MG in SYRINGE 1 EACH IV SCH (13:43)
[2017-08-08 17:26] LABS: Apearance,Urine CLEAR (Clear); Bilirubin,Urine Negative (Negative); Blood, Urine Negative (Negative); Glucose,Urine (UA) 50 mg/dL (Negative); Ketones,Urine Negative (Negative); Mucus,Urine Occasional /LPF (Occasional); Nitrite,Urine Negative (Negative); Protein,Urine Negative; RBC,Urine 1 /HPF (0-4); Squamous Epithelial Cell,Urine Occasional /HPF (0-10); Urine Color Straw (Yellow); Urine Specific Gravity 1.008 (1.001-1.035); Urine Urobilinogen < 2.0 EU/DL (0.2-1.0); WBC,Urine 4 /HPF (0-6)
[2017-08-08] MEDS: ENOXAPARIN 40 MG/0.4 ML SYRINGE SUBCUT SCH (21:01)
[2017-08-09] MEDS: NITROGLYCERIN 2% OINT 1 INCH/GM PACK TOP SCH ×2 (00:13→05:34)
[2017-08-09 04:27] LABS: Basophils % 0.2 % (0.0-0.8); Eosinophils % 0.1 % (0.00-10.9); Hematocrit 30.2 VOL% (35.7-47.0); Hemoglobin 10.3 GM/DL (12.0-16.0); Immature Granulocytes % 2.3 %; Immature Granulocytes Absolute 0.29 #; Lymphocytes # 1.1 10*3/uL (1.4-4.0); Lymphocytes % 8.9 % (21.3-54.2); Mean Corpuscular HGB Conc 34.1 GM/DL (32-36); Mean Corpuscular Hemoglobin 30 PG (27-34); Mean Corpuscular Volume 89.1 FL (87-102); Mean Platelet Volume 13.1 FL (9.6-12.0); Monocytes # 0.8 10*3/uL (0.11-0.8); Monocytes % 6.6 % (1.7-12.7); Neutrophils # 10.2 10*3/uL (1.4-7.4); Neutrophils % 81.9 % (38.7-73.9); Platelet Count 289 T/CUMM (130-400); Red Blood Count 3.39 MC/CUMM (3.8-5.5); Red Cell Distribution Width 15.7 % (9.3-17.3); White Blood Count 12.4 T/CUMM (4-12)
[2017-08-09 04:52] LABS: Calcium 8.7 MG/DL (8.5-10.1); Osmolality,Calculated 286.2 MOS/KG (273-304); Potassium 5.4 MMOL/L (3.5-5.1)
[2017-08-09] MEDS ORDERED: PAPAVERINE 60 MG/2 ML VIAL ONE (05:25)
[2017-08-09] MEDS ORDERED: TISSUE ADHESIVE 1 EACH APPLICATOR TOP ONE ×2 (05:26→09:09)
[2017-08-09] MEDS ORDERED: VANCOMYCIN 1,000 MG VIAL ONE (05:26)
[2017-08-09] MEDS ORDERED: SUFentanil 250 MCG/5 ML AMP ONE (05:56)
[2017-08-09] MEDS ORDERED: MIDAZOLAM 10 MG/2 ML VIAL ONE (05:57)
[2017-08-09] MEDS: METOPROLOL TARTRATE 25 MG TABLET PO SCH ×2 (06:01→19:05)
[2017-08-09] MEDS: PANTOPRAZOLE 40 MG TABLET PO SCH ×2 (06:01→19:06)
[2017-08-09] MEDS: CHLORHEXIDINE 0.12% ORAL RINSE 60 ML BOTTLE SWISH/SPIT SCH ×3 (06:01→21:14)
[2017-08-09] MEDS: FAMOTIDINE 20 MG TABLET PO SCH ×2 (06:01→19:05)
[2017-08-09] MEDS: LEVOTHYROXINE 100 MCG TABLET PO SCH (06:17)
[2017-08-09] MEDS: methylPREDNISolone SOD SUC 40 MG/1 ML VIAL IV SCH (06:17)
[2017-08-09] MEDS: ALBUTEROL/IPRATROPIUM 3 ML NEB RESP TX SCH (07:38)
[2017-08-09 07:45] LABS: ABG Base Excess 8.7 MMOL/L (-2.5-2.5); ABG HCO3 32.5 MMOL/L (20-26); ABG Oxygen Saturation 99.5 % (95-100); ABG PCO2 47.9 MM HG (35-48); ABG PH 7.456 (7.35-7.45); ABG TCO2 30.9 MMOL/L (23-27); Glucose Heart Surgery 133 MG/DL (74-106); Hematocrit Heart Surgery 28.5 PERCENT (37-47); Hemoglobin Heart Surgery 9.2 G/DL (12.0-16.0); Ionized Calcium Arterial 1.19 MMOL/L (1.21-1.46); PCO2 Patient Temp Arterial 47.9 MMHG; PH Patient Temp Arterial 7.456; Patient Temperature 37 CELCIUS; Potassium Heart/CVR 4.5 MMOL/L (3.5-5.1); Sodium Heart/CVR 136 MMOL/L (135-145)
[2017-08-09 08:03] LABS: Apearance,Urine CLEAR (Clear); Bilirubin,Urine Negative (Negative); Blood, Urine Negative (Negative); Glucose,Urine (UA) Negative (Negative); Ketones,Urine Negative (Negative); Nitrite,Urine Negative (Negative); Protein,Urine Negative; RBC,Urine <1 /HPF (0-4); Squamous Epithelial Cell,Urine Occasional /HPF (0-10); Urine Color Straw (Yellow); Urine Specific Gravity 1.008 (1.001-1.035); Urine Urobilinogen < 2.0 EU/DL (0.2-1.0); WBC,Urine <1 /HPF (0-6)
[2017-08-09 08:31] LABS: Hematocrit Heart Surgery 27.8 PERCENT (37-47); PCO2 Patient Temp Venous 55.3 MM HG; PH Patient Temp Venous 7.389; PO2 Patient Temp Venous 47.2 MM HG; Potassium Heart/CVR 5.6 MMOL/L (3.5-5.1); VBG Base Excess 7.1 MEQ/L (0-4); VBG HCO3 30.7 MEQ/L (24-28); VBG Oxygen Saturation 82.6 %; VBG PCO2 55.3 MMHG (41-51); VBG PH 7.389; VBG PO2 47.2 MMHG (17-40)
[2017-08-09] MEDS ORDERED: THROMBIN TOPICAL (RECOMBINANT) 5,000 UNIT VIAL TOP ONE (09:09)
[2017-08-09 09:13] LABS: ABG Base Excess 6.7 MMOL/L (-2.5-2.5); ABG HCO3 30.6 MMOL/L (20-26); ABG Oxygen Saturation 97.7 % (95-100); ABG PCO2 34.5 MM HG (35-48); ABG PH 7.539 (7.35-7.45); ABG TCO2 26.8 MMOL/L (23-27); Glucose Heart Surgery 290 MG/DL (74-106); Hematocrit Heart Surgery 30.3 PERCENT (37-47); Hemoglobin Heart Surgery 9.8 G/DL (12.0-16.0); Ionized Calcium Arterial 1.24 MMOL/L (1.21-1.46); PCO2 Patient Temp Arterial 34.5 MMHG; PH Patient Temp Arterial 7.539; Patient Temperature 37 CELCIUS; Potassium Heart/CVR 4.8 MMOL/L (3.5-5.1); Sodium Heart/CVR 129 MMOL/L (135-145)
[2017-08-09] MEDS ORDERED: PROTAMINE SULFATE 250 MG/25 ML VIAL IV ONE (09:39)
[2017-08-09] MEDS ORDERED: DEXTROSE 5% KCL 20 MEQ 20 MEQ/1,000 ML BAG IV ONE (09:39)
[2017-08-09] MEDS ORDERED: SODIUM BICARBONATE 50 MEQ/50 ML SYRINGE IV ONE (09:39)
[2017-08-09] MEDS ORDERED: ALBUMIN 25% 25 GM/100 ML VIAL IV ONE (09:39)
[2017-08-09] MEDS ORDERED: MAGNESIUM SULFATE 1 GM/2 ML VIAL ONE (09:40)
[2017-08-09] MEDS ORDERED: methylPREDNISolone SOD SUC 1,000 MG/8 ML VIAL ONE (09:40)
[2017-08-09] MEDS ORDERED: MANNITOL 12.5 GM/50 ML VIAL IV ONE (09:40)
[2017-08-09] MEDS ORDERED: FUROSEMIDE 20 MG/2 ML VIAL ONE (09:40)
[2017-08-09] MEDS ORDERED: HEPARIN 10,000 UNIT/10 ML VIAL ONE (09:40)
[2017-08-09] MEDS ORDERED: MORPHINE 2 MG/1 ML SYRINGE IV PRN (10:04)
[2017-08-09] MEDS ORDERED: CHLORHEXIDINE 4% SOLN 118 ML BOTTLE TOP PRN (10:04)
[2017-08-09] MEDS ORDERED: INSULIN REGULAR 100 UNIT/ML IV PRN (10:04)
[2017-08-09] MEDS ORDERED: MORPHINE 10 MG/1 ML VIAL IV PRN (10:04)
[2017-08-09] MEDS ORDERED: SODIUM CHLORIDE 0.9% 250 ML IV PRN (10:04)
[2017-08-09] MEDS ORDERED: MAGNESIUM SULF RIDER 4 GM in PREMIX 1 EACH IV PRN (10:04)
[2017-08-09] MEDS ORDERED: POTASSIUM CHLORIDE RIDER 10 MEQ in PREMIX 1 EACH IV PRN (10:04)
[2017-08-09] MEDS ORDERED: POTASSIUM CHLORIDE RIDER 20 MEQ in PREMIX 1 EACH IV PRN (10:04)
[2017-08-09] MEDS ORDERED: ACETAMINOPHEN 650 MG SUPP RECTAL PRN (10:04)
[2017-08-09] MEDS ORDERED: CALCIUM CHLORIDE 1,000 MG/10 ML SYRINGE IV PRN (10:04)
[2017-08-09] MEDS ORDERED: MAGNESIUM SULF RIDER 2 GM in PREMIX 1 EACH IV PRN (10:04)
[2017-08-09] MEDS ORDERED: MIDAZOLAM 2 MG/2 ML VIAL IV PRN (10:04)
[2017-08-09] MEDS ORDERED: DEXTROSE 50% 25 GM/50 ML VIAL IV PRN (10:04)
[2017-08-09] MEDS ORDERED: ETOMIDATE 40 MG/20 ML VIAL IV ONE (10:08)
[2017-08-09] MEDS ORDERED: CALCIUM CHLORIDE 1,000 MG/10 ML VIAL IV ONE (10:08)
[2017-08-09] MEDS ORDERED: SEVOFLURANE 1 UNIT/15 MINUTE INH ONE (10:08)
[2017-08-09] MEDS ORDERED: VECURONIUM 10 MG VIAL IV ONE (10:08)
[2017-08-09] MEDS ORDERED: PHENYLEPHRINE 50 MG/5 ML VIAL ONE (10:08)
[2017-08-09] MEDS ORDERED: SODIUM CHLORIDE 0.9% 100 ML IV ONE (10:09)
[2017-08-09] MEDS ORDERED: SODIUM CHLORIDE 0.9% 250 ML IV ONE (10:09)
[2017-08-09] MEDS ORDERED: NITROGLYCERIN DRIP 50 MG/250 ML BOTTLE IV ONE (10:09)
[2017-08-09] MEDS ORDERED: LACTATED RINGERS 1,000 ML IV ONE (10:09)
[2017-08-09] MEDS ORDERED: AMINOCAPROIC ACID 5,000 MG/20 ML VIAL IV ONE (10:09)
[2017-08-09] MEDS ORDERED: ALBUMIN 5% 12.5 GM/250 ML VIAL IV ONE (10:16)
[2017-08-09] MEDS: ALBUMIN 5% 12.5 GM in PREMIX 1 EACH IV PRN ×4 (10:28→13:11)
[2017-08-09] MEDS ORDERED: INSULIN REGULAR DRIP 100 ML IV SCH (10:30)
[2017-08-09] MEDS ORDERED: SODIUM CHLORIDE 0.45% 1,000 ML IV SCH ×2 (10:30)
[2017-08-09 10:32] LABS: Basophils # 0.1 10*3/uL (0.0-0.2); Basophils % 0.3 % (0.0-0.8); Eosinophils # 0.1 10*3/uL (0.0-0.87); Eosinophils % 0.3 % (0.00-10.9); Hematocrit 32.8 VOL% (35.7-47.0); Hemoglobin 11.2 GM/DL (12.0-16.0); Immature Granulocytes % 1.9 %; Immature Granulocytes Absolute 0.42 #; Lymphocytes # 0.9 10*3/uL (1.4-4.0); Lymphocytes % 4.1 % (21.3-54.2); Mean Corpuscular HGB Conc 34.1 GM/DL (32-36); Mean Corpuscular Hemoglobin 30 PG (27-34); Mean Corpuscular Volume 88.2 FL (87-102); Mean Platelet Volume 12.4 FL (9.6-12.0); Monocytes # 1.1 10*3/uL (0.11-0.8); Monocytes % 4.9 % (1.7-12.7); Neutrophils # 19.1 10*3/uL (1.4-7.4); Neutrophils % 88.5 % (38.7-73.9); Platelet Count 242 T/CUMM (130-400); Red Blood Count 3.72 MC/CUMM (3.8-5.5); Red Cell Distribution Width 15.9 % (9.3-17.3); White Blood Count 21.6 T/CUMM (4-12)
[2017-08-09 10:41] LABS: INR 1.2; PT Patient Result 12.7 SECS; Partial Thromboplastin Time 33.6 SECS (0-40)
[2017-08-09 10:52] LABS: Band Neutrophils 1 % (0-10); Giant Platelets Few; Hypochromasia 1+; Lymphocytes 5 % (20-55); Platelet Estimate Adequate; Segmented Neutrophils 91 % (50-85); Total Cells Counted 100
[2017-08-09 11:06] LABS: Blood Urea Nitrogen 40 MG/DL (7-18); Calcium 8.5 MG/DL (8.5-10.1); Glucose 168 MG/DL (74-106); Osmolality,Calculated 283.1 MOS/KG (273-304); Potassium 4.2 MMOL/L (3.5-5.1); Sodium 135 MMOL/L (136-145)
[2017-08-09 11:08] LABS: ABG Base Excess 5.3 MMOL/L (-2.5-2.5); ABG HCO3 29.2 MMOL/L (20-26); ABG Oxygen Saturation 97.4 % (95-100); ABG PCO2 38.5 MM HG (35-48); ABG PH 7.486 (7.35-7.45); ABG TCO2 26.3 MMOL/L (23-27); Glucose Heart Surgery 128 MG/DL (74-106); Hematocrit Heart Surgery 30.5 PERCENT (37-47); Hemoglobin Heart Surgery 9.9 G/DL (12.0-16.0); Potassium Heart/CVR 3.6 MMOL/L (3.5-5.1)
[2017-08-09 11:16] LABS: Lactic Acid 3.7 MMOL/L (0.4-2.0)
[2017-08-09] MEDS ORDERED: VANCOMYCIN INJ 1,000 MG in SODIUM CHLORIDE 0.9% 250 ML IV ONE (12:18)
[2017-08-09] MEDS ORDERED: AZTREONAM 500 MG in SODIUM CHLORIDE 0.9% 100 ML IV SCH (12:30)
[2017-08-09] MEDS: CEFEPIME 1,000 MG in SYRINGE 1 EACH IV SCH (13:00)
[2017-08-09] MEDS ORDERED: DEXTROSE 5% LACTATED RINGERS 1,000 ML IV SCH (16:00)
[2017-08-09] MEDS ORDERED: LACTATED RINGERS 500 ML IV ONE (16:47)
[2017-08-09] MEDS ORDERED: SODIUM CHLORIDE 0.9% 1,000 ML IV SCH (17:00)
[2017-08-09] MEDS: DEXTROSE 50% 25 GM/50 ML VIAL IV PRN (17:02)
[2017-08-09] MEDS: SODIUM CHLORIDE 0.9% 1,000 ML IV SCH ×2 (17:06→19:06)
[2017-08-09] MEDS: MORPHINE 10 MG/1 ML VIAL IV PRN ×2 (17:27→21:02)
[2017-08-09] MEDS: LACTOBACILLUS ACIDOPHILUS/BULGARICUS CAPLET PO SCH (19:04)
[2017-08-09] MEDS: ASPIRIN EC 81 MG TABLET PO SCH (19:04)
[2017-08-09] MEDS: POTASSIUM CHLORIDE 20 MEQ TABLET PO SCH (19:04)
[2017-08-09] MEDS: INSULIN GLARGINE 100 UNIT/ML SUBCUT SCH (19:05)
[2017-08-09] MEDS: FUROSEMIDE 40 MG TABLET PO SCH (19:05)
[2017-08-09] MEDS: FENOFIBRATE 145 MG TABLET PO SCH (19:06)
[2017-08-09] MEDS: valACYclovir 500 MG TABLET PO SCH (19:06)
[2017-08-09] MEDS: INSULIN LISPRO 100 UNIT/ML SUBCUT SCH ×2 (19:22)
[2017-08-09] MEDS: ONDANSETRON 4 MG/2 ML VIAL IV PRN (20:58)
[2017-08-10] MEDS: MORPHINE 10 MG/1 ML VIAL IV PRN ×2 (01:42→18:47)
[2017-08-10 04:50] LABS: Basophils % 0.2 % (0.0-0.8); Hematocrit 26.6 VOL% (35.7-47.0); Hemoglobin 9.1 GM/DL (12.0-16.0); Immature Granulocytes % 1.3 %; Immature Granulocytes Absolute 0.22 #; Lymphocytes # 0.9 10*3/uL (1.4-4.0); Lymphocytes % 4.9 % (21.3-54.2); Mean Corpuscular HGB Conc 34.2 GM/DL (32-36); Mean Corpuscular Hemoglobin 30 PG (27-34); Mean Corpuscular Volume 87.2 FL (87-102); Mean Platelet Volume 12.8 FL (9.6-12.0); Monocytes # 0.9 10*3/uL (0.11-0.8); Monocytes % 5.2 % (1.7-12.7); Neutrophils # 15.3 10*3/uL (1.4-7.4); Neutrophils % 88.4 % (38.7-73.9); Platelet Count 193 T/CUMM (130-400); Red Blood Count 3.05 MC/CUMM (3.8-5.5); Red Cell Distribution Width 16.2 % (9.3-17.3); White Blood Count 17.3 T/CUMM (4-12)
[2017-08-10 04:56] LABS: Apearance,Urine CLEAR (Clear); Bilirubin,Urine Negative (Negative); Blood, Urine Negative (Negative); Glucose,Urine (UA) Negative (Negative); Ketones,Urine Negative (Negative); Mucus,Urine Occasional /LPF (Occasional); Nitrite,Urine Negative (Negative); Protein,Urine Negative; RBC,Urine 9 /HPF (0-4); Urine Color Yellow (Yellow); Urine Specific Gravity 1.018 (1.001-1.035); WBC,Urine 1 /HPF (0-6)
[2017-08-10 05:09] LABS: Giant Platelets Few; Hypochromasia 1+; Lymphocytes 7 % (20-55); Ovalocytes Slight; Platelet Estimate Adequate; Segmented Neutrophils 90 % (50-85); Total Cells Counted 100
[2017-08-10 05:14] LABS: Calcium 7.1 MG/DL (8.5-10.1); Osmolality,Calculated 288.4 MOS/KG (273-304)
[2017-08-10 05:52] LABS: ABG Base Excess 4.2 MMOL/L (-2.5-2.5); ABG HCO3 28.2 MMOL/L (20-26); ABG Oxygen Saturation 97.4 % (95-100); ABG PCO2 48.8 MM HG (35-48); ABG PH 7.395 (7.35-7.45); ABG TCO2 27.2 MMOL/L (23-27); Glucose Heart Surgery 141 MG/DL (74-106); Potassium Heart/CVR 3.8 MMOL/L (3.5-5.1)
[2017-08-10] MEDS ORDERED: METOPROLOL TARTRATE 5 MG/5 ML VIAL IV ONE (06:44)
[2017-08-10] MEDS ORDERED: INSULIN ASPART 4 UNIT SUBCUT SCH (06:45)
[2017-08-10] MEDS ORDERED: CYANOCOBALAMIN 1000 MCG/1 ML VIAL IM SCH (07:00)
[2017-08-10] MEDS: SODIUM CHLORIDE 0.9% 1,000 ML IV SCH (07:28)
[2017-08-10] MEDS: ONDANSETRON 4 MG/2 ML VIAL IV PRN (08:30)
[2017-08-10] MEDS ORDERED: GELATIN PO SCH (09:00)
[2017-08-10] MEDS: CALCIUM (CARBONATE)/VITAMIN D 500 MG-200 UNIT TABLET PO SCH ×2 (09:12→21:43)
[2017-08-10] MEDS: CLOPIDOGREL 75 MG TABLET PO SCH (09:12)
[2017-08-10] MEDS: FUROSEMIDE 40 MG TABLET PO SCH (09:12)
[2017-08-10] MEDS: FENOFIBRATE 145 MG TABLET PO SCH (09:12)
[2017-08-10] MEDS: ASPIRIN EC 325 MG TABLET PO SCH (09:13)
[2017-08-10] MEDS: METOPROLOL TARTRATE 25 MG TABLET PO SCH ×2 (09:13→21:44)
[2017-08-10] MEDS: CHLORHEXIDINE 0.12% ORAL RINSE 60 ML BOTTLE SWISH/SPIT SCH (09:13)
[2017-08-10] MEDS: ATORVASTATIN 40 MG TABLET PO SCH ×2 (09:13→21:43)
[2017-08-10] MEDS: INSULIN GLARGINE 100 UNIT/ML SUBCUT SCH ×2 (09:14→21:43)
[2017-08-10] MEDS: INSULIN LISPRO 100 UNIT/ML SUBCUT SCH ×3 (12:09→22:07)
[2017-08-10] MEDS: CEFEPIME 1,000 MG in SYRINGE 1 EACH IV SCH (13:05)
[2017-08-11] MEDS: MORPHINE 10 MG/1 ML VIAL IV PRN ×3 (02:42→19:07)
[2017-08-11] MEDS: CHLORHEXIDINE 0.12% ORAL RINSE 60 ML BOTTLE SWISH/SPIT SCH ×3 (02:49→21:47)
[2017-08-11] MEDS: ONDANSETRON 4 MG/2 ML VIAL IV PRN (06:20)
[2017-08-11 06:57] LABS: Calcium 7.3 MG/DL (8.5-10.1); Osmolality,Calculated 283.5 MOS/KG (273-304); Potassium 4.1 MMOL/L (3.5-5.1)
[2017-08-11 07:04] LABS: Basophils % 0.1 % (0.0-0.8); Eosinophils % 0.1 % (0.00-10.9); Hematocrit 33.4 VOL% (35.7-47.0); Immature Granulocytes % 1.8 %; Immature Granulocytes Absolute 0.28 #; Lymphocytes # 1.6 10*3/uL (1.4-4.0); Lymphocytes % 10.1 % (21.3-54.2); Mean Corpuscular HGB Conc 32.9 GM/DL (32-36); Mean Corpuscular Hemoglobin 30 PG (27-34); Mean Corpuscular Volume 91.8 FL (87-102); Mean Platelet Volume 12.6 FL (9.6-12.0); Monocytes # 1.4 10*3/uL (0.11-0.8); Monocytes % 8.6 % (1.7-12.7); Neutrophils # 12.7 10*3/uL (1.4-7.4); Neutrophils % 79.3 % (38.7-73.9); Platelet Count 232 T/CUMM (130-400); Red Blood Count 3.64 MC/CUMM (3.8-5.5); Red Cell Distribution Width 16.2 % (9.3-17.3)
[2017-08-11] MEDS: INSULIN LISPRO 100 UNIT/ML SUBCUT SCH ×4 (08:58→23:10)
[2017-08-11] MEDS: INSULIN GLARGINE 100 UNIT/ML SUBCUT SCH ×2 (09:05→21:46)
[2017-08-11] MEDS: FUROSEMIDE 40 MG TABLET PO SCH (09:06)
[2017-08-11] MEDS: METOPROLOL TARTRATE 25 MG TABLET PO SCH ×2 (09:06→21:46)
[2017-08-11] MEDS: CLOPIDOGREL 75 MG TABLET PO SCH (09:06)
[2017-08-11] MEDS: CALCIUM (CARBONATE)/VITAMIN D 500 MG-200 UNIT TABLET PO SCH ×2 (09:06→21:46)
[2017-08-11] MEDS: FENOFIBRATE 145 MG TABLET PO SCH (09:06)
[2017-08-11] MEDS: ASPIRIN EC 325 MG TABLET PO SCH (09:10)
[2017-08-11] MEDS ORDERED: FUROSEMIDE 40 MG/4 ML VIAL IV ONE (16:33)
[2017-08-11] MEDS: ATORVASTATIN 40 MG TABLET PO SCH (21:46)
[2017-08-12 04:54] LABS: Basophils % 0.3 % (0.0-0.8); Eosinophils # 0.1 10*3/uL (0.0-0.87); Eosinophils % 0.5 % (0.00-10.9); Hematocrit 33.3 VOL% (35.7-47.0); Hemoglobin 11.3 GM/DL (12.0-16.0); Immature Granulocytes % 2.4 %; Immature Granulocytes Absolute 0.33 #; Lymphocytes # 1.8 10*3/uL (1.4-4.0); Lymphocytes % 12.9 % (21.3-54.2); Mean Corpuscular HGB Conc 33.9 GM/DL (32-36); Mean Corpuscular Hemoglobin 30 PG (27-34); Mean Corpuscular Volume 89.5 FL (87-102); Mean Platelet Volume 12.3 FL (9.6-12.0); Monocytes % 7.7 % (1.7-12.7); Neutrophils # 10.3 10*3/uL (1.4-7.4); Neutrophils % 76.2 % (38.7-73.9); Platelet Count 260 T/CUMM (130-400); Red Blood Count 3.72 MC/CUMM (3.8-5.5); Red Cell Distribution Width 15.9 % (9.3-17.3); White Blood Count 13.5 T/CUMM (4-12)
[2017-08-12 06:22] LABS: Calcium 7.6 MG/DL (8.5-10.1); Osmolality,Calculated 279.7 MOS/KG (273-304)
[2017-08-12] MEDS: INSULIN GLARGINE 100 UNIT/ML SUBCUT SCH ×2 (08:19→21:53)
[2017-08-12] MEDS: INSULIN LISPRO 100 UNIT/ML SUBCUT SCH ×4 (08:19→22:11)
[2017-08-12] MEDS: METOPROLOL TARTRATE 25 MG TABLET PO SCH ×2 (09:08→21:52)
[2017-08-12] MEDS: CLOPIDOGREL 75 MG TABLET PO SCH (09:08)
[2017-08-12] MEDS: CHLORHEXIDINE 0.12% ORAL RINSE 60 ML BOTTLE SWISH/SPIT SCH ×2 (09:08→21:53)
[2017-08-12] MEDS: ASPIRIN EC 325 MG TABLET PO SCH (09:08)
[2017-08-12] MEDS: FENOFIBRATE 145 MG TABLET PO SCH (09:08)
[2017-08-12] MEDS: CALCIUM (CARBONATE)/VITAMIN D 500 MG-200 UNIT TABLET PO SCH ×2 (09:08→21:52)
[2017-08-12] MEDS: FUROSEMIDE 40 MG TABLET PO SCH (09:08)
[2017-08-12] MEDS: MORPHINE 10 MG/1 ML VIAL IV PRN ×2 (10:23→23:48)
[2017-08-12] MEDS ORDERED: BISACODYL 5 MG TABLET PO PRN (10:34)
[2017-08-12] MEDS: ATORVASTATIN 40 MG TABLET PO SCH (21:52)
[2017-08-12] MEDS: ONDANSETRON 4 MG/2 ML VIAL IV PRN (21:58)
[2017-08-13 05:52] LABS: Basophils # 0.1 10*3/uL (0.0-0.2); Basophils % 0.5 % (0.0-0.8); Eosinophils # 0.2 10*3/uL (0.0-0.87); Eosinophils % 1.2 % (0.00-10.9); Hematocrit 36.3 VOL% (35.7-47.0); Hemoglobin 11.9 GM/DL (12.0-16.0); Immature Granulocytes % 3.9 %; Lymphocytes % 15.7 % (21.3-54.2); Mean Corpuscular HGB Conc 32.8 GM/DL (32-36); Mean Corpuscular Hemoglobin 31 PG (27-34); Mean Corpuscular Volume 93.6 FL (87-102); Mean Platelet Volume 12.2 FL (9.6-12.0); Monocytes % 7.8 % (1.7-12.7); Neutrophils # 9.1 10*3/uL (1.4-7.4); Neutrophils % 70.9 % (38.7-73.9); Platelet Count 230 T/CUMM (130-400); Red Blood Count 3.88 MC/CUMM (3.8-5.5); Red Cell Distribution Width 16.1 % (9.3-17.3); White Blood Count 12.8 T/CUMM (4-12)
[2017-08-13 06:01] LABS: Osmolality,Calculated 274.1 MOS/KG (273-304); Potassium 4.4 MMOL/L (3.5-5.1)
[2017-08-13] MEDS: DEXTROSE 50% 25 GM/50 ML VIAL IV PRN (06:47)
[2017-08-13 08:36] LABS: Albumin 2.1 G/DL (3.4-5.0); Bilirubin,Direct 0.24 MG/DL (0.0-0.20); Bilirubin,Indirect 0.7 MG/DL (0.0-1.0); Bilirubin,Total 0.9 MG/DL (0.2-1.0); Total Protein 4.7 G/DL (6.4-8.3)
[2017-08-13] MEDS: INSULIN LISPRO 100 UNIT/ML SUBCUT SCH ×4 (08:47→21:31)
[2017-08-13] MEDS: INSULIN GLARGINE 100 UNIT/ML SUBCUT SCH ×2 (08:48→21:22)
[2017-08-13] MEDS: MORPHINE 10 MG/1 ML VIAL IV PRN ×3 (09:31→22:49)
[2017-08-13] MEDS: CALCIUM (CARBONATE)/VITAMIN D 500 MG-200 UNIT TABLET PO SCH ×2 (09:36→21:22)
[2017-08-13] MEDS: CLOPIDOGREL 75 MG TABLET PO SCH (09:36)
[2017-08-13] MEDS: CHLORHEXIDINE 0.12% ORAL RINSE 60 ML BOTTLE SWISH/SPIT SCH ×2 (09:37→21:21)
[2017-08-13] MEDS: FENOFIBRATE 145 MG TABLET PO SCH (09:37)
[2017-08-13] MEDS: ASPIRIN EC 325 MG TABLET PO SCH (09:37)
[2017-08-13] MEDS: METOPROLOL TARTRATE 25 MG TABLET PO SCH ×2 (09:37→21:22)
[2017-08-13] MEDS: FUROSEMIDE 40 MG TABLET PO SCH (09:37)
[2017-08-13] MEDS: APIXABAN 5 MG TABLET PO SCH ×2 (12:58→21:22)
[2017-08-13] MEDS: ATORVASTATIN 40 MG TABLET PO SCH (21:22)
[2017-08-14] MEDS: MORPHINE 10 MG/1 ML VIAL IV PRN ×2 (05:02→14:15)
[2017-08-14 06:56] LABS: Basophils # 0.1 10*3/uL (0.0-0.2); Basophils % 0.6 % (0.0-0.8); Eosinophils # 0.2 10*3/uL (0.0-0.87); Eosinophils % 1.5 % (0.00-10.9); Hematocrit 33.6 VOL% (35.7-47.0); Hemoglobin 11.1 GM/DL (12.0-16.0); Immature Granulocytes Absolute 0.82 #; Lymphocytes # 1.9 10*3/uL (1.4-4.0); Lymphocytes % 13.8 % (21.3-54.2); Mean Corpuscular Hemoglobin 30 PG (27-34); Mean Corpuscular Volume 92.1 FL (87-102); Mean Platelet Volume 12.2 FL (9.6-12.0); Monocytes % 7.1 % (1.7-12.7); Neutrophils # 9.8 10*3/uL (1.4-7.4); Platelet Count 267 T/CUMM (130-400); Red Blood Count 3.65 MC/CUMM (3.8-5.5); Red Cell Distribution Width 15.9 % (9.3-17.3); White Blood Count 13.7 T/CUMM (4-12)
[2017-08-14 07:24] LABS: Band Neutrophils 15 % (0-10); Eosinophils 2 % (0-10); Lymphocytes 14 % (20-55); Metamyelocytes 1 %; Segmented Neutrophils 62 % (50-85); Total Cells Counted 100
[2017-08-14 07:26] LABS: Anisocytosis 1+; Poikilocytosis 1+; Target Cells Slight
[2017-08-14 08:33] LABS: Calcium 8.3 MG/DL (8.5-10.1); Osmolality,Calculated 281.4 MOS/KG (273-304); Potassium 4.5 MMOL/L (3.5-5.1)
[2017-08-14] MEDS: INSULIN LISPRO 100 UNIT/ML SUBCUT SCH ×4 (09:48→21:29)
[2017-08-14] MEDS: CLOPIDOGREL 75 MG TABLET PO SCH (09:49)
[2017-08-14] MEDS: FUROSEMIDE 40 MG TABLET PO SCH (09:49)
[2017-08-14] MEDS: ASPIRIN EC 325 MG TABLET PO SCH (09:49)
[2017-08-14] MEDS: INSULIN GLARGINE 100 UNIT/ML SUBCUT SCH ×2 (09:49→20:46)
[2017-08-14] MEDS: METOPROLOL TARTRATE 25 MG TABLET PO SCH ×2 (09:49→20:45)
[2017-08-14] MEDS: FENOFIBRATE 145 MG TABLET PO SCH (09:49)
[2017-08-14] MEDS: CALCIUM (CARBONATE)/VITAMIN D 500 MG-200 UNIT TABLET PO SCH ×2 (09:49→20:45)
[2017-08-14] MEDS: APIXABAN 5 MG TABLET PO SCH ×2 (09:50→20:46)
[2017-08-14] MEDS: CHLORHEXIDINE 0.12% ORAL RINSE 60 ML BOTTLE SWISH/SPIT SCH ×2 (09:50→20:48)
[2017-08-14] MEDS: ONDANSETRON 4 MG/2 ML VIAL IV PRN (14:22)
[2017-08-14] MEDS: ATORVASTATIN 40 MG TABLET PO SCH (20:45)
[2017-08-15 05:38] LABS: Basophils # 0.1 10*3/uL (0.0-0.2); Basophils % 0.5 % (0.0-0.8); Eosinophils # 0.2 10*3/uL (0.0-0.87); Hemoglobin 10.5 GM/DL (12.0-16.0); Immature Granulocytes % 5.1 %; Immature Granulocytes Absolute 0.62 #; Lymphocytes # 2.1 10*3/uL (1.4-4.0); Lymphocytes % 17.4 % (21.3-54.2); Mean Corpuscular HGB Conc 32.8 GM/DL (32-36); Mean Corpuscular Hemoglobin 30 PG (27-34); Mean Corpuscular Volume 91.7 FL (87-102); Mean Platelet Volume 11.4 FL (9.6-12.0); Monocytes # 1.1 10*3/uL (0.11-0.8); Monocytes % 9.4 % (1.7-12.7); Neutrophils % 65.6 % (38.7-73.9); Platelet Count 320 T/CUMM (130-400); Red Blood Count 3.49 MC/CUMM (3.8-5.5); Red Cell Distribution Width 16.1 % (9.3-17.3); White Blood Count 12.1 T/CUMM (4-12)
[2017-08-15 06:02] LABS: Eosinophils 4 % (0-10); Hypochromasia 1+; Lymphocytes 16 % (20-55); Segmented Neutrophils 73 % (50-85); Total Cells Counted 100
[2017-08-15 06:03] LABS: Microcytosis 1+; Platelet Estimate Normal
[2017-08-15 06:11] LABS: Calcium 8.4 MG/DL (8.5-10.1); Osmolality,Calculated 278.7 MOS/KG (273-304); Potassium 4.3 MMOL/L (3.5-5.1)
[2017-08-15] MEDS: INSULIN LISPRO 100 UNIT/ML SUBCUT SCH ×4 (07:51→22:26)
[2017-08-15] MEDS: FENOFIBRATE 145 MG TABLET PO SCH (09:29)
[2017-08-15] MEDS: CALCIUM (CARBONATE)/VITAMIN D 500 MG-200 UNIT TABLET PO SCH ×2 (09:29→21:16)
[2017-08-15] MEDS: APIXABAN 5 MG TABLET PO SCH ×2 (09:30→21:16)
[2017-08-15] MEDS: CLOPIDOGREL 75 MG TABLET PO SCH (09:30)
[2017-08-15] MEDS: INSULIN GLARGINE 100 UNIT/ML SUBCUT SCH ×2 (09:30→21:17)
[2017-08-15] MEDS: FUROSEMIDE 40 MG TABLET PO SCH (09:30)
[2017-08-15] MEDS: ASPIRIN EC 325 MG TABLET PO SCH (09:30)
[2017-08-15] MEDS: METOPROLOL TARTRATE 25 MG TABLET PO SCH ×2 (09:30→21:16)
[2017-08-15] MEDS: ZINC OXIDE PASTE 113 GM TUBE TOP SCH ×2 (11:23→21:20)
[2017-08-15] MEDS: CHLORHEXIDINE 0.12% ORAL RINSE 60 ML BOTTLE SWISH/SPIT SCH ×2 (11:23→22:26)
[2017-08-15] MEDS: ONDANSETRON 4 MG/2 ML VIAL IV PRN (14:16)
[2017-08-15] MEDS: MORPHINE 10 MG/1 ML VIAL IV PRN (14:20)
[2017-08-15] MEDS: ATORVASTATIN 40 MG TABLET PO SCH (21:16)
[2017-08-16 05:03] LABS: Basophils # 0.1 10*3/uL (0.0-0.2); Basophils % 0.8 % (0.0-0.8); Eosinophils # 0.2 10*3/uL (0.0-0.87); Eosinophils % 1.2 % (0.00-10.9); Hematocrit 31.6 VOL% (35.7-47.0); Hemoglobin 10.5 GM/DL (12.0-16.0); Immature Granulocytes % 5.9 %; Immature Granulocytes Absolute 0.74 #; Lymphocytes # 1.9 10*3/uL (1.4-4.0); Lymphocytes % 14.8 % (21.3-54.2); Mean Corpuscular HGB Conc 33.2 GM/DL (32-36); Mean Corpuscular Hemoglobin 31 PG (27-34); Mean Corpuscular Volume 91.9 FL (87-102); Mean Platelet Volume 11.6 FL (9.6-12.0); Monocytes # 1.1 10*3/uL (0.11-0.8); Monocytes % 8.5 % (1.7-12.7); Neutrophils # 8.7 10*3/uL (1.4-7.4); Neutrophils % 68.8 % (38.7-73.9); Platelet Count 328 T/CUMM (130-400); Red Blood Count 3.44 MC/CUMM (3.8-5.5); Red Cell Distribution Width 16.4 % (9.3-17.3); White Blood Count 12.6 T/CUMM (4-12)
[2017-08-16 05:34] LABS: Eosinophils 1 % (0-10); Hypochromasia 1+; Lymphocytes 21 % (20-55); Microcytosis 1+; Segmented Neutrophils 71 % (50-85); Total Cells Counted 100
[2017-08-16 05:36] LABS: Calcium 8.5 MG/DL (8.5-10.1); Osmolality,Calculated 280.7 MOS/KG (273-304); Potassium 4.2 MMOL/L (3.5-5.1)
[2017-08-16] MEDS: INSULIN LISPRO 100 UNIT/ML SUBCUT SCH ×2 (08:11→12:10)
[2017-08-16] MEDS: ASPIRIN EC 325 MG TABLET PO SCH (09:34)
[2017-08-16] MEDS: CALCIUM (CARBONATE)/VITAMIN D 500 MG-200 UNIT TABLET PO SCH (09:34)
[2017-08-16] MEDS: FENOFIBRATE 145 MG TABLET PO SCH (09:34)
[2017-08-16] MEDS: CLOPIDOGREL 75 MG TABLET PO SCH (09:34)
[2017-08-16] MEDS: ZINC OXIDE PASTE 113 GM TUBE TOP SCH (09:35)
[2017-08-16] MEDS: FUROSEMIDE 40 MG TABLET PO SCH (09:35)
[2017-08-16] MEDS: INSULIN GLARGINE 100 UNIT/ML SUBCUT SCH (09:35)
[2017-08-16] MEDS: CHLORHEXIDINE 0.12% ORAL RINSE 60 ML BOTTLE SWISH/SPIT SCH (09:36)
[2017-08-16] MEDS: METOPROLOL TARTRATE 25 MG TABLET PO SCH (09:36)
[2017-08-16 11:56] VITALS: BP 116/66
[2017-08-16] MEDS: ONDANSETRON 4 MG/2 ML VIAL IV PRN (12:38)
== END 2017-08-16 15:16 | disposition swing bed (61) | DRG 233 ==
LOC: EDUNIT# → EDBD → N.ED 08:25 → SUPCPDRO 12:51 → SUATTDRO 12:51 → N.EDINP 12:51 → N.TELEN 15:21 → N.CC 07-30 07:21 → N.TELES 08-05 16:36 → N.CVR 08-09 10:06 → N.TELES 08-10 15:01
PROVIDERS: ADMIT Internal Medicine Infectious Disease; ATTEND Internal Medicine

== ENCOUNTER 2019-09-26 14:29 | Observation (INO) ==
[2019-09-26] MEDS ORDERED: ENOXAPARIN 100 MG/ML SYRINGE SUBCUT STA (15:56)
[2019-09-26] MEDS ORDERED: ASPIRIN 325 MG TABLET PO STA (15:56)
[2019-09-26] MEDS ORDERED: ENOXAPARIN 80 MG/0.8 ML SYRINGE SUBCUT ONE (16:01)
[2019-09-26 16:03] LABS: Basophils % 0.5 % (0.0-0.8); Eosinophils # 0.1 10*3/uL (0.0-0.87); Eosinophils % 1.8 % (0.00-10.9); Hematocrit 38.4 VOL% (35.7-47.0); Hemoglobin 12.3 GM/DL (12.0-16.0); Immature Granulocytes % 0.3 %; Immature Granulocytes Absolute 0.02 #; Lymphocytes # 1.1 10*3/uL (1.4-4.0); Lymphocytes % 15.3 % (21.3-54.2); Mean Corpuscular Volume 96.7 FL (87-102); Mean Platelet Volume 11.8 FL (9.6-12.0); Monocytes % 6.3 % (1.7-12.7); Neutrophils % 75.8 % (38.7-73.9); Platelet Count 236 T/CUMM (130-400); Red Blood Count 3.97 MC/CUMM (3.8-5.5); Red Cell Distribution Width 14.1 % (9.3-17.3); White Blood Count 7.3 T/CUMM (4-12)
[2019-09-26 16:09] LABS: PT Patient Result 10.4 SECS (9.6-12.2)
[2019-09-26 16:48] LABS: Albumin 4.1 G/DL (3.4-5.0); Bilirubin,Total 1.7 MG/DL (0.2-1.0); Calcium 9.9 MG/DL (8.5-10.1); Osmolality,Calculated 294.4 MOS/KG (273-304); Total Protein 7.8 G/DL (6.4-8.3)
[2019-09-26] MEDS ORDERED: MORPHINE 4 MG/1 ML VIAL IV PRN (17:27)
[2019-09-26] MEDS ORDERED: DEXTROSE 50% 25 GM/50 ML VIAL IV PRN (17:27)
[2019-09-26] MEDS ORDERED: BISACODYL 5 MG TABLET PO PRN (17:27)
[2019-09-26] MEDS ORDERED: ACETAMINOPHEN 325 MG TABLET PO PRN (17:27)
[2019-09-26] MEDS ORDERED: GLUCAGON 1 MG VIAL IM PRN ×2 (17:27)
[2019-09-26] MEDS ORDERED: DEXTROSE 10% 250 ML BAG IV PRN (17:27)
[2019-09-26] MEDS ORDERED: ONDANSETRON 4 MG/2 ML VIAL IV PRN (17:27)
[2019-09-26] MEDS ORDERED: NITROGLYCERIN SL 0.4 MG TABLET SL PRN (18:39)
[2019-09-26] MEDS: SIMVASTATIN 20 MG TABLET PO SCH (19:34)
[2019-09-26 19:43] LABS: Risk Ratio 2.64; VLDL CHOLESTEROL 42.2 MG/DL
[2019-09-26] MEDS: INSULIN REGULAR 100 UNIT/ML SUBCUT SCH (21:40)
[2019-09-26] MEDS: INSULIN GLARGINE 100 UNIT/ML SUBCUT SCH (21:40)
[2019-09-26] MEDS: PANTOPRAZOLE 40 MG TABLET PO SCH (21:41)
[2019-09-26] MEDS: cilostazoL 50 MG TABLET PO SCH (21:41)
[2019-09-26] MEDS: ASPIRIN EC 325 MG TABLET PO SCH (21:41)
[2019-09-26] MEDS: METOPROLOL TARTRATE 50 MG TABLET PO SCH (21:41)
[2019-09-26] MEDS: CALCIUM (CARBONATE)/VITAMIN D 600 MG-400 UNIT TABLET PO SCH (21:41)
[2019-09-27] MEDS ORDERED: ENOXAPARIN 80 MG/0.8 ML SYRINGE SUBCUT SCH (04:00)
[2019-09-27] MEDS: LEVOTHYROXINE 100 MCG TABLET PO SCH (05:43)
[2019-09-27 07:06] LABS: Risk Ratio 2.83
[2019-09-27] MEDS ORDERED: GELATIN PO SCH (09:00)
[2019-09-27] MEDS ORDERED: GLUCAGON 1 MG VIAL IM PRN (09:50)
[2019-09-27] MEDS ORDERED: DEXTROSE 50% 25 GM/50 ML VIAL IV PRN (09:50)
[2019-09-27] MEDS: MULTIVITAMIN (CENTRUM) TABLET PO SCH (09:58)
[2019-09-27] MEDS: METOPROLOL TARTRATE 50 MG TABLET PO SCH ×2 (09:58→20:39)
[2019-09-27] MEDS: CALCIUM (CARBONATE)/VITAMIN D 600 MG-400 UNIT TABLET PO SCH ×2 (09:58→20:39)
[2019-09-27] MEDS: cilostazoL 50 MG TABLET PO SCH ×2 (09:58→20:39)
[2019-09-27] MEDS: OXYBUTYNIN XL 15 MG TABLET PO SCH (09:59)
[2019-09-27] MEDS: valACYclovir 500 MG TABLET PO SCH (09:59)
[2019-09-27] MEDS: FENOFIBRATE 145 MG TABLET PO SCH (09:59)
[2019-09-27] MEDS: FUROSEMIDE 40 MG TABLET PO SCH (09:59)
[2019-09-27] MEDS: PANTOPRAZOLE 40 MG TABLET PO SCH ×2 (09:59→20:39)
[2019-09-27] MEDS: CLOPIDOGREL 75 MG TABLET PO SCH (09:59)
[2019-09-27] MEDS: ISOSORBIDE MONONITRATE 30 MG TABLET PO SCH (09:59)
[2019-09-27] MEDS: ENOXAPARIN 80 MG/0.8 ML SYRINGE SUBCUT SCH (10:17)
[2019-09-27] MEDS: INSULIN REGULAR 100 UNIT/ML SUBCUT SCH ×4 (10:17→20:40)
[2019-09-27] MEDS: SIMVASTATIN 20 MG TABLET PO SCH (18:08)
[2019-09-27] MEDS: ASPIRIN EC 325 MG TABLET PO SCH (20:39)
[2019-09-27] MEDS: INSULIN GLARGINE 100 UNIT/ML SUBCUT SCH (20:39)
[2019-09-28] MEDS: LEVOTHYROXINE 100 MCG TABLET PO SCH (06:03)
[2019-09-28 06:21] LABS: Basophils # 0.1 10*3/uL (0.0-0.2); Eosinophils # 0.3 10*3/uL (0.0-0.87); Hematocrit 35.9 VOL% (35.7-47.0); Hemoglobin 11.2 GM/DL (12.0-16.0); Immature Granulocytes % 0.7 %; Immature Granulocytes Absolute 0.04 #; Lymphocytes # 1.4 10*3/uL (1.4-4.0); Mean Corpuscular HGB Conc 31.2 GM/DL (32-36); Mean Platelet Volume 11.3 FL (9.6-12.0); Monocytes % 9.5 % (1.7-12.7); Neutrophils % 58.8 % (38.7-73.9); Platelet Count 229 T/CUMM (130-400); Red Blood Count 3.74 MC/CUMM (3.8-5.5); Red Cell Distribution Width 14.1 % (9.3-17.3); White Blood Count 5.8 T/CUMM (4-12)
[2019-09-28 06:27] LABS: Calcium 8.9 MG/DL (8.5-10.1); Osmolality,Calculated 286.8 MOS/KG (273-304)
[2019-09-28 08:28] VITALS: BP 139/53
[2019-09-28] MEDS: FUROSEMIDE 40 MG TABLET PO SCH (08:44)
[2019-09-28] MEDS: METOPROLOL TARTRATE 50 MG TABLET PO SCH (08:44)
[2019-09-28] MEDS: CLOPIDOGREL 75 MG TABLET PO SCH (08:44)
[2019-09-28] MEDS: ISOSORBIDE MONONITRATE 30 MG TABLET PO SCH (08:44)
[2019-09-28] MEDS: MULTIVITAMIN (CENTRUM) TABLET PO SCH (08:44)
[2019-09-28] MEDS: cilostazoL 50 MG TABLET PO SCH (08:44)
[2019-09-28] MEDS: FENOFIBRATE 145 MG TABLET PO SCH (08:45)
[2019-09-28] MEDS: valACYclovir 500 MG TABLET PO SCH (08:45)
[2019-09-28] MEDS: PANTOPRAZOLE 40 MG TABLET PO SCH (08:45)
[2019-09-28] MEDS: OXYBUTYNIN XL 15 MG TABLET PO SCH (08:45)
[2019-09-28] MEDS: CALCIUM (CARBONATE)/VITAMIN D 600 MG-400 UNIT TABLET PO SCH (08:45)
[2019-09-28] MEDS: INSULIN REGULAR 100 UNIT/ML SUBCUT SCH (08:47)
[2019-09-28] MEDS: ENOXAPARIN 80 MG/0.8 ML SYRINGE SUBCUT SCH (08:48)
== END 2019-09-28 11:56 | disposition home or self-care (01) ==
LOC: N.EDINP 14:29 → N.ED 14:29 → N.2E 17:55
PROVIDERS: ADMIT Internal Medicine; ATTEND Internal Medicine